=== PATIENT | female | born 1960 | race Caucasian/White ===

== ENCOUNTER 2021-06-26 13:08 | Outpatient (CLI) | payer OTHER, SELFPAY ==
--- NOTE | 2021-06-26 13:14 | XR_ITS ---
WS: [email or web address] KUB, AP view, 06/26/2021 Clinical Data: kidney stone Comparison: None. Findings: No abnormal intraabdominal masses or calcifications are seen. There is no dilatated small bowel or ev idence of obstruction. There is a large amount of fecal material throughout the colon. The fecal material in colon gas obscu re detail over both kidneys. XR/XR KUB [id number] Impression: Large amount of fecal material in the colon.
== END 2021-06-26 13:09 | disposition home or self-care (01) ==
LOC: RAD 13:14
PROVIDERS: PCP Urology; Visit Provider Urology
DX: N20.0 Calculus of kidney (principal)
CPT/HCPCS: 74018; 81003

== ENCOUNTER 2021-07-08 13:01 | Outpatient (CLI) | payer OTHER, SELFPAY ==
--- NOTE | 2021-07-08 13:28 | XR_ITS ---
WS: [email or web address] XR KUB [id number] REASON FOR EXAM: UROLITHIASIS FINDINGS: CT scan 06/06/2021 demonstrated multiple intrarenal calculi bilaterally with a proximal right ureteral calculus. Multiple intrarenal calculi bilaterally. Calculus adjacent to the right transverse process of L3. Thi s is essentially the same location of the right ureteral calculus demonstrated on the previous CT sca n. In retrospect this calculus can be seen on the KUB of 06/26/2021 in the same location. No other urinary tract calculi are identified. XR/XR KUB [id number] IMPRESSION: Right ureteral calculus which is not changed position since 06/06/2021.
== END 2021-07-08 13:02 | disposition home or self-care (01) ==
PROVIDERS: PCP Urology; Visit Provider Urology
DX: N20.9 Urinary calculus, unspecified (principal); N20.1 Calculus of ureter
CPT/HCPCS: 74018; 81003; 87635

== ENCOUNTER 2021-07-15 07:32 | Day surgery (SDC) | payer OTHER, SELFPAY ==
[2021-07-12 13:21] VITALS: BMI 25.0
[2021-07-15] VITALS (7 sets, daily range): BP systolic 118–139; BP diastolic 72–86; PULSE 84–100; RESP 16–18; TEMP 36.1–36.3; O2SAT 93–99
--- NOTE | 2021-07-15 06:01 | P.HPUD_ITS ---
Surgery/Procedure H&P Update DATE OF PROCEDURE: July 15, 2021 DATE H&P PERFORMED: 07/08/21 H&P UPDATE INFORMATION: I have reviewed H&P completed within last 30 days, I have examined patient prior to procedure, No changes to prior documentation and H&P is in [facility] on date indicated PRIMARY INDICATION FOR PROCEDURE: Refractory RIGHT PROXIMAL ureteral 6mm stone first diagnosed 06/06/[address] scan. No progression of stone on serial KUBs in clinic. Persistent symptoms. Plan stent and ESWL KUB today showed no change in the position of the stone in the right proximal ureter. PLANNED PROCEDURE: Operation Date: 07/15/21 09:10 Proposed Procedures p ESWL [id number]/71972/n20.9/n20.1(Right) - Leo Mercado MD s Cystoscopy(Not Applicable) - Leo Mercado MD s Ureteral Stent Placement(Right) - Leo Mercado MD
--- NOTE | 2021-07-15 07:41 | XR_ITS ---
WS: [email or web address] ABDOMEN KUB CLINICAL INFORMATION: Renal/ureteral calculi. COMPARISON: July 08, 2021 FINDINGS: Stable RIGHT middle 1/3rd ureteral calculus at the L3 level projected over the transverse process. No other significant changes compared to previous. Additional tiny renal parenchymal calculi. XR/XR KUB [id number] Impression: Stable RIGHT middle 3rd ureteral calculus at the L3 level
[2021-07-15] MEDS: sodium chloride 0.9% 1,000 ML 30 ML IV (08:46)
--- NOTE | 2021-07-15 08:51 | ANES.PREANE2 ---
Pre-Anesthetic Assessment Height/Weight: Height 1.68 m Weight 70.307 kg Temp Pulse Resp BP Pulse Ox 97.3 F L 84 18 137/85 99 07/15/21 08:06 07/15/21 08:06 07/15/21 08:06 07/15/21 08:06 07/15/21 08:06 Preop Diagnosis: Refractory right ureteral calculus Operation Date: 07/15/21 09:10 Proposed Procedures p ESWL [id number]/n20.9/n20.1(Right) - Leo Mercado MD s Cystoscopy(Not Applicable) - Leo Mercado MD s Ureteral Stent Placement(Right) - Leo Mercado MD Was Beta Marcela taken within 24 hours: N/A Was Clonidine taken within 24 hours: N/A Social No alcohol and No tobacco Exam alert, oriented x 3, clear to auscultation bilaterally and regular rate & rhythm Airway Submandibular: within normal limits Cervical ROM: within normal limits Mallampati: Class II Dentition: full History/ROS No significant history except as noted Pulmonary None reported CV/HEM None reported METS = 4 Nephrolithiasis Hepatic None reported GI None reported Metabolic None reported Musc/skel None reported Neuropsych None reported Anesthetic Plan ASA status: 2 Anesthesia: Anesthesia Evaluation and General Other: We discussed risk and benefits of general anesthesia including PONV, sore throat (sometimes severe), corneal abrasion, positioning and peripheral nerve injuries, life threatening allergic reaction, post operative ICU admission requiring prolonged intubation, stroke, heart attack, , and rare incidences of recall. Patient consents to proceed with general anesthesia. Risk of > 500 ml blood loss (7ml/kg in children): No Medications/Allergies Home Medications Medication Instructions Recorded Confirmed Last Taken Type L.acidoph, paracasei,B. lactis 10 cell PO 06/26/21 07/08/21 07/14/21 History billion cell capsule (Digestive Advantage Advanced Probiotic) atorvastatin 20 mg tablet 20 mg PO DAILY 06/26/21 07/15/21 07/14/21 History cinnamon PO 06/26/21 07/08/21 Unknown History cinnamon bark 500 mg capsule 1,000 mg PO DAILY cap 06/26/21 07/12/21 Unknown History (Cinnamon) docusate sodium 100 mg capsule 100 mg PO BID 06/26/21 07/15/21 07/14/21 History (Stool Softener) mecobalamin (vitamin B12) 1,000 1,000 mcg SUBLINGUAL DAILY 06/26/21 07/15/21 07/14/21 History mcg disintegrating tablet,sublingual omeprazole 20 mg capsule,delayed 20 mg PO DAILY 06/26/21 07/15/21 07/14/21 History release tamsulosin 0.4 mg capsule 0.4 mg PO DAILY #30 cap 06/26/21 07/15/21 07/14/21 Rx Allergies Allergy/AdvReac Type Severity Reaction Status Date / Time sulfamethoxazole Allergy Mild STOMACH Verified 07/08/21 14:26 [From Bactrim] ACHE trimethoprim [From Bactrim] Allergy Mild STOMACH Verified 07/08/21 14:26 ACHE venlafaxine AdvReac sweating, Verified 06/26/21 13:58 elevated BP Current Medications Generic Name Dose Route Start Last Admin Trade Name Freq PRN Reason Stop Dose Admin Sodium Chloride 1,000 mls @ 30 mls/hr 07/15/21 07:45 07/15/21 08:46 Sodium Chloride 0.9% IV 07/16/21 07:44 30 mls/hr .Q24H JEN Administration PFSH Anesthesia Medical History Urolithiasis Surgical History History of bladder surgery History of cholecystectomy History of hysterectomy Family History Father Dementia Cancer SQUAMOUS CELL CARCINOMA Mother Dementia Social History Smoking and tobacco status: never smoked Alcohol intake: never Marital status: Current occupational status: retired History of recent travel: No Data Anesthesia Cardiac Studies: No Data to Display
[2021-07-15] MEDS: levofloxacin-dextrose 5 % 500 MG/100 ML PREMIX 100 MG IV (09:36)
--- NOTE | 2021-07-15 10:49 | PM.OP ---
Operative Report Date of procedure: July 15, 2021 Pre-op diagnosis: Preop Diagnosis Refractory right ureteral calculus Post-op diagnosis: Refractory right ureteral calculus Procedure done: 1. Extracorporeal shockwave lithotripsy right proximal ureteral stone 2. Cystoscopy with right ureteral stent placement (6 Polish by 28 cm double-pigtail without string Specimens removed/disposition: None Pathology: None Surgeon: Jess [employer] Sales Representative: Janet, lithotripsy certified technician specialist Anesthesia: General Estimated blood loss: None Urine output: Not measured Complications: None Findings: Stone easily with fluoroscopy. 2500 shocks administered to the stone with apparent good change. Stent left indwelling postop (6 Polish by 28 cm double-pigtail without string Brief History: Gill is a very pleasant 61-year-old white female who presented with renal colic on the right side in early June had a CT scan that demonstrated an obstructing right proximal ureteral stone. Since that time she has been imaged serially with no progressive movement of the stone. She still was symptomatic on follow-up clinic visit last week and elected to proceed with ESWL plus stent Procedure: After routine preoperative evaluation examination and obtaining of informed consent she was taken to the operating suite on 07/15/2021 where general anesthesia was administered without difficulty after appropriate timeout was performed, SCDs confirmed to be functioning, preoperative antibiotics administered, beta-gideon protocol confirmed. Position on the Dornier unit such that the stone was located the focal point utilizing biplanar fluoroscopy with a shock and positioned anteriorly. The stone was easily identified and focused upon. A total of 2500 shocks were administered to the stone with good change. Position adjustments based on real-time fluoroscopic monitoring. Shockwave was initiated intensity of 1 advanced an intensity of 4. Rate was 70 throughout. Based on the duration of which the stone had been present in the same place it was decided to leave a stent in to account for ureteral edema. She was then repositioned in dorsolithotomy position paying careful attention to avoiding pressure points. 21 Polish cystoscope with 30 degree lens was introduced into the urethra meatus and advanced into the bladder under videoscopy. The bladder was systematically examined and found to be within normal limits. There appear to be some very small sediment likely stone particles. A flexible tip guidewire was then advanced up the right ureter easily bypassing the area of the stone curling in the upper pole calyx and a 6 Polish by 28 cm double-pigtail stent was advanced over the guidewire through the cystoscope into appropriate position as confirmed via fluoroscopy and cystoscopy. Stent was confirmed to be functioning. She tolerated procedure well without complications and was awakened in the operating room and returned to the recovery room in stable condition. PLANS: 1. Anticipate discharge from outpatient surgery 2. Follow-up in roughly 1 week with KUB and likely cystoscopy stent removal.
[2021-07-15] MEDS: ondansetron 2 mg/ML SDV 2 mL 4 MG IVP ×2 (11:23→11:53)
[2021-07-15] MEDS: scopolamine 1.5 Patch 1 PATCH TRANSDERMA (12:13)
[2021-07-15] MEDS: diphenhydrAMINE 50 mg/mL SDV 1mL 25 MG IVP (12:13)
[2021-07-15] MEDS: ketorolac 30 mg/mL INJ IVP (12:28)
--- NOTE | 2021-07-15 15:54 | ANE.PACU2 ---
Inpatient post-anesthesia follow up: Airway intact: Yes Vital signs: Temperature 97.2 F Pulse Rate 87 Respiratory Rate 16 Blood Pressure 124/72 Pulse Oximetry 97 Oxygen Delivery Me thod Room Air Oxygen Flow Rate 6 Fraction of Inspir ed Oxygen Hydration adequate: Yes Nausea and vomiting: Yes (Nausea improved with diphenhydramine and scopalamine patch) Pain level: 4 Mental status: Baseline
== END 2021-07-15 13:35 | disposition home or self-care (01) ==
PROVIDERS: PCP Urology; Visit Provider Urology
PROC: (CPT 50590; principal; 2021-07-15 09:00)
PROC: 0TJB8ZZ Inspection of Bladder, Via Natural or Artificial Opening Endoscopic (ICD-10-PCS; CPT 52000; 2021-07-15 09:00)
PROC: (CPT 50605; 2021-07-15 09:00)
DX: N20.1 Calculus of ureter (principal)
CPT/HCPCS: 50590; 52332; 74018; C2625; J1100; J1200; J1885; J1956; J2250; J2405; J2704; J3010; J7030

== ENCOUNTER 2021-07-23 14:02 | Outpatient (CLI) | payer OTHER, SELFPAY ==
--- NOTE | 2021-07-23 14:00 | XR_ITS ---
WS: [email or web address] Exam: XR KUB [id number] Date/Time of Exam: 07/23/2021 2:16 PM Reason For Exam: UROLITHIASIS Comparison 07/15/2021. A right-sided ureteral catheter has been placed and appears to be in satisfactory position. There are calcifications superimposing both kidneys apparently representing known renal stones. There is also a calcification seen along the proximal aspect of the right ureteral catheter that may represent a ur eteral stone. No bowel obstruction or free air. No sign of organ enlargement. XR/XR KUB [id number] IMPRESSION: 1. Right ureteral pigtail catheter appearing to be in satisfactory location. A 3 mm calcification is seen along the proximal aspect of the catheter and may re present a ureteral stone. There are also small calcified stones visualized in b oth kidneys. 2. No acute abdominal process.
== END 2021-07-23 14:03 | disposition home or self-care (01) ==
LOC: RAD 14:05
PROVIDERS: PCP Urology; Visit Provider Urology
DX: N20.9 Urinary calculus, unspecified (principal); Z96.0 Presence of urogenital implants
CPT/HCPCS: 74018

== ENCOUNTER 2021-08-19 14:14 | Outpatient (CLI) | payer OTHER, SELFPAY ==
--- NOTE | 2021-08-19 13:45 | XR_ITS ---
WS: [email or web address] KUB, AP view, 08/19/2021. Clinical Data: UROLITHIASIS Comparison: KUB, 07/23/2021 Findings: No abnormal intraabdominal masses are seen. There is no dilatated small bowel or evidence of obstruct ion. There may be calcifications overlying both kidneys but fecal material and bowel gas obscure detail. XR/XR KUB [id number] Impression: Possible bilateral renal calculi.
== END 2021-08-19 14:15 | disposition home or self-care (01) ==
PROVIDERS: PCP Family Medicine; Visit Provider Urology
DX: N20.9 Urinary calculus, unspecified (principal)
CPT/HCPCS: 74018; 81003

== ENCOUNTER → 2021-09-23 15:00 | Outpatient (BNVA) | payer OTHER, SELFPAY | PROVIDERS: PCP Family Medicine; Referring Provider Family Medicine; Visit Provider Podiatrist Foot & Ankle Surgery | DX: M79.671 Pain in right foot (principal); M79.672 Pain in left foot | CPT/HCPCS: 73630 ==

== ENCOUNTER → 2021-09-24 09:33 | Outpatient (BNVA) | payer OTHER, SELFPAY | PROVIDERS: PCP Family Medicine; Visit Provider Family Medicine | DX: E78.5 Hyperlipidemia, unspecified (principal); N95.1 Menopausal and female climacteric states; B35.4 Tinea corporis; Z12.11 Encounter for screening for malignant neoplasm of colon | CPT/HCPCS: 80053; 80061; 84443; 85025 ==

== ENCOUNTER 2022-02-19 06:57 | Day surgery (SDC) | payer OTHER, SELFPAY ==
[2022-02-17 14:27] VITALS: BMI 24.7
[2022-02-19 07:26] VITALS: BP 145/85; PULSE 61; RESP 18; TEMP 36.1; O2SAT 98
[2022-02-19] MEDS: sodium chloride 0.9% 1,000 ML 30 ML IV (07:35)
--- NOTE | 2022-02-19 07:49 | ANES.PREANE2 ---
Pre-Anesthetic Assessment Height/Weight: Height 1.68 m Weight 69.4 kg Temp Pulse Resp BP Pulse Ox O2 Del Method 97.0 F L 61 18 145/85 98 02/19/22 07:02/19/22 07:02/19/22 07:02/19/22 07:02/19/22 07:02/19/22 07:26 Preop Diagnosis: Refractory right ureteral calculus Operation Date: 02/19/22 08:15 Proposed Procedures p Colonoscopy [id number],Z12.11(Not Applicable) - Maverick Reyes DO Familial anesthetic complications: PONV Was Beta Marcela taken within 24 hours: N/A Was Clonidine taken within 24 hours: Yes Last intake: Intake Last Liquid Date 02/18/22 Last Liquid Time 22:00 Last Solid Date 02/17/22 Last Solid Time 21:00 Social No alcohol and No tobacco Exam alert, oriented x 3, clear to auscultation bilaterally and regular rate & rhythm Airway Mallampati: Class II Dentition: full Pulmonary None reported CV/HEM Hypertension None reported Hepatic None reported GI Gastroesophageal Reflux Disease Metabolic Hyperlipidemia Neuropsych Neuropathy Anesthetic Plan ASA status: 2 Anesthesia: MAC Risk of > 500 ml blood loss (7ml/kg in children): No Medications/Allergies Home Medications Medication Instructions Recorded Confirmed Last Taken Type L.acidoph, paracasei,B. lactis 10 100 cell PO 1XD 06/26/21 02/19/22 02/17/22 History billion cell capsule (Digestive Advantage Advanced Probiotic) docusate sodium 100 mg capsule 100 mg PO BID 06/26/21 02/19/22 02/17/22 History (Stool Softener) mecobalamin (vitamin B12) 1,000 1,000 mcg sublingual DAILY 06/26/21 02/19/22 02/17/22 History mcg disintegrating tablet,sublingual omeprazole 20 mg capsule,delayed 20 mg PO DAILY 06/26/21 02/19/22 02/17/22 History release atorvastatin 20 mg tablet 20 mg PO DAILY #90 tabs 09/25/21 02/19/22 02/18/22 Rx acetaminophen 500 mg tablet 500 mg PO ONCE PRN Pain, Moderate 10/31/21 02/19/22 Unknown History (Tylenol Extra Strength) clonidine HCl 0.1 mg tablet 0.1 mg PO DAILY PRN hot flashes 12/24/21 02/19/22 02/18/22 Rx #90 tabs estradiol 1 mg tablet 1 mg PO DAILY #90 tabs 12/24/21 02/19/22 02/17/22 Rx meloxicam 15 mg tablet 15 mg PO DAILY 1 month #90 tabs 12/24/21 02/19/22 02/17/22 Rx Allergies Allergy/AdvReac Type Severity Reaction Status Date / Time sulfamethoxazole Allergy Mild STOMACH Verified 02/19/22 07:24 [From Bactrim] ACHE trimethoprim [From Bactrim] Allergy Mild STOMACH Verified 02/19/22 07:24 ACHE venlafaxine AdvReac sweating, Verified 02/19/22 07:24 elevated BP Current Medications Generic Name Dose Route Start Last Admin Trade Name Josefq PRN Reason Stop Dose Admin Sodium Chloride 1,000 mls @ 30 mls/hr 02/19/22 07:15 02/19/22 07:35 Sodium Chloride 0.9% IV 02/20/22 07:14 30 mls/hr .Q24H JEN Administration PFSH Anesthesia Medical History Chronic low back pain History of cervical fracture History of fracture of right ankle Rectal prolapse surgery 2019 Urolithiasis Surgical History History of bladder surgery Lifted History of cholecystectomy 2001 History of hysterectomy GALO. 2018 Family History Father Dementia Cancer SQUAMOUS CELL CARCINOMA Mother Dementia Social History Smoking and tobacco status: never smoked Alcohol intake: never Marital status: Current occupational status: retired History of recent travel: No Data Anesthesia Cardiac Studies: No Data to Display
--- NOTE | 2022-02-19 07:50 | W.PM.OPSUD ---
Surgery/Procedure H&P Update DATE OF PROCEDURE: February 19, 2022 DATE H&P PERFORMED: 02/05/22 PREOP DIAGNOSIS: Abdominal pain and need for colon cancer screening PLANNED PROCEDURE: Operation Date: 02/19/22 08:15 Proposed Procedures p Colonoscopy 56309,Z12.11(Not Applicable) - Maverick Reyes, DO and EGD
[2022-02-19 09:01] VITALS: BP 116/66; PULSE 75; RESP 16; TEMP 36.7; O2SAT 99
--- NOTE | 2022-02-19 09:04 | ANE.PACU2 ---
Inpatient post-anesthesia follow up: Airway intact: Yes Vital signs: Temperature 97.0 F Pulse Rate 61 Respiratory Rate 18 Blood Pressure 145/85 Pulse Oximetry 98 Oxygen Delivery Me thod Room Air Oxygen Flow Rate Fraction of Inspir ed Oxygen Hydration adequate: Yes Nausea and vomiting: No Pain level: 1 Mental status: Baseline
[2022-02-19 09:13] VITALS: BP 132/70; PULSE 71; RESP 16; O2SAT 99
[2022-02-19 09:23] VITALS: BP 130/77; PULSE 68; RESP 16; O2SAT 100
--- NOTE | 2022-02-19 15:05 | ANE.PACU2 ---
Inpatient post-anesthesia follow up: Airway intact: Yes Vital signs: Temperature 98.1 F Pulse Rate 68 Respiratory Rate 16 Blood Pressure 130/77 Pulse Oximetry 100 Oxygen Delivery Me thod Room Air Oxygen Flow Rate Fraction of Inspir ed Oxygen Hydration adequate: Yes Nausea and vomiting: No Pain level: 1 Mental status: Baseline
== END 2022-02-19 08:30 | disposition home or self-care (01) ==
PROVIDERS: PCP Family Medicine; Visit Provider Surgery
PROC: 0DJD8ZZ Inspection of Lower Intestinal Tract, Via Natural or Artificial Opening Endoscopic (ICD-10-PCS; CPT 45378; principal; 2022-02-19 08:15)
PROC: 0DJ08ZZ Inspection of Upper Intestinal Tract, Via Natural or Artificial Opening Endoscopic (ICD-10-PCS; CPT 43235; 2022-02-19 08:15)
DX: Z12.11 Encounter for screening for malignant neoplasm of colon (principal); K21.9 Gastro-esophageal reflux disease without esophagitis; I10 Essential (primary) hypertension; E78.5 Hyperlipidemia, unspecified
CPT/HCPCS: 43235; 45378; J2704; J7030

== ENCOUNTER → 2022-04-14 10:07 | Outpatient (BNVA) | payer OTHER, SELFPAY | PROVIDERS: PCP Family Medicine; Visit Provider Student in an Organized Health Care Education/Training Program | DX: F41.1 Generalized anxiety disorder (principal); M17.11 Unilateral primary osteoarthritis, right knee; N95.1 Menopausal and female climacteric states; E78.5 Hyperlipidemia, unspecified | CPT/HCPCS: 73560; 73565; 80053 ==

== ENCOUNTER 2022-05-28 15:37 | Outpatient (CLI) | payer OTHER, SELFPAY | END 2022-05-28 15:38 | disposition home or self-care (01) | LOC: SPT 15:37 | PROVIDERS: PCP Family Medicine; Visit Provider Podiatrist Foot & Ankle Surgery | DX: Z46.89 Encounter for fitting and adjustment of other specified devices (principal); M20.41 Other hammer toe(s) (acquired), right foot; M20.42 Other hammer toe(s) (acquired), left foot; M21.621 Bunionette of right foot; M21.622 Bunionette of left foot | CPT/HCPCS: 97760; L3030 ==

== ENCOUNTER 2022-08-19 09:11 | Outpatient (CLI) | payer OTHER, SELFPAY ==
--- NOTE | 2022-08-19 09:18 | MM_ITS ---
WS: [email or web address] BILATERAL SCREENING DIGITAL TOMOSYNTHESIS MAMMOGRAM WITH CAD HISTORY: screening mammogram COMPARISON: None available. Bilateral CC and MLO views with tomosynthesis and synthetic mammography submitted. Computer aided det ection analyzed. Breast composition: The breasts are heterogeneously dense, which may obscure small masses. No suspici ous masses, microcalcifications or architectural distortion. Benign calcifications. MM/[place] [id number] IMPRESSION: BI-RADS: 2-Benign FOLLOW UP: 1 Year Follow-up
== END 2022-08-19 09:12 | disposition home or self-care (01) ==
LOC: RAD 09:14
PROVIDERS: PCP Family Medicine; Visit Provider Family Medicine
DX: Z12.31 Encounter for screening mammogram for malignant neoplasm of breast (principal)
CPT/HCPCS: 77063; 77067

== ENCOUNTER → 2023-01-23 09:10 | Outpatient (BNVA) | payer OTHER, SELFPAY | PROVIDERS: PCP Family Medicine; Visit Provider Family Medicine | DX: E78.5 Hyperlipidemia, unspecified (principal) | CPT/HCPCS: 80053; 80061; 85025 ==

== ENCOUNTER → 2023-03-31 08:50 | Outpatient (BNVA) | payer OTHER, SELFPAY | PROVIDERS: PCP Family Medicine; Visit Provider Student in an Organized Health Care Education/Training Program | DX: M17.12 Unilateral primary osteoarthritis, left knee | CPT/HCPCS: 73560; 73565 ==

== ENCOUNTER → 2023-06-04 10:21 | Outpatient (BNVA) | payer OTHER, SELFPAY | PROVIDERS: PCP Family Medicine; Visit Provider Physician Assistant | DX: M17.12 Unilateral primary osteoarthritis, left knee | CPT/HCPCS: 99214 ==

== ENCOUNTER 2023-06-18 09:29 | Outpatient (CLI) | payer OTHER, SELFPAY ==
--- NOTE | 2023-06-18 09:30 | CT_ITS ---
WS: [email or web address] CT LEFT knee, noncontrast HISTORY: LEFT TOTAL KNEE ARTHROPLASTY TECHNIQUE: Protocol for [facility] total knee replacement has been obtained. This includes axial imaging th rough the LEFT hip, LEFT knee and LEFT ankle. DLP: 972.05 mGy COMPARISON: None available. Pelvis: Symmetric appearance of the pelvis. No bone destruction. LEFT knee: Moderate tricompartment joint space narrowing with marginal osteophytes. No fractures. Sma ll joint effusion and small Knapp's cyst. LEFT ankle: Normal. IMPRESSION: CT imaging provided for [facility] robotic total knee replacement.
== END 2023-06-18 09:30 | disposition home or self-care (01) ==
LOC: RAD 09:29
PROVIDERS: PCP Family Medicine; Visit Provider Physician Assistant
DX: Z01.818 Encounter for other preprocedural examination (principal); M17.12 Unilateral primary osteoarthritis, left knee
CPT/HCPCS: 73700

== ENCOUNTER → 2023-06-25 09:51 | Outpatient (BNVA) | payer OTHER, SELFPAY | PROVIDERS: PCP Family Medicine; Visit Provider Family Medicine | DX: Z01.818 Encounter for other preprocedural examination (principal) | CPT/HCPCS: 80053; 81003; 85025; 87086 ==

== ENCOUNTER 2023-07-21 03:17 | Emergency (ER) | payer OTHER, SELFPAY ==
[2023-07-21 03:23] VITALS: BP 154/103; PULSE 84; RESP 18; TEMP 36.5; O2SAT 96; BMI 26.6
--- NOTE | 2023-07-21 03:31 | CTR_ITS ---
PROCEDURE INFORMATION: Exam: CT Abdomen And Pelvis Without Contrast Exam date and time: 07/21/2023 3:57 AM Age: 63 years old Clinical indication: Abdominal pain; Flank; Right; Prior surgery; Surgery date: 6+ months; Surgery type: Hyst, bladder lift x2; Additional info: Right flank pain TECHNIQUE: Imaging protocol: Computed tomography of the abdomen and pelvis without contrast. Radiation optimization: All CT scans at this facility use at least one of these dose optimization techniques: automated exposure control; mA and/or kV adjustment per patient size (includes targeted exams where dose is matched to clinical indication); or iterative reconstruction. COMPARISON: CT abdomen pelvis w con* [id number] 06/06/2021 3:14 PM RADIATION DOSE METRICS: Total DLP (mGy-cm): 599 FINDINGS: Lungs: The lung bases are clear. Diaphragm: 3.5 cm hiatal hernia, new since the prior exam. Liver: There are several small well-defined low attenuation areas in the liver, largest about 12 mm. No significant interval. These are nonspecific, but are statistically most likely small cysts or cavernous hemangiomas. Gallbladder and bile ducts: The gallbladder is not visualized, suspect that there has been prior cholecystectomy. Please correlate clinically. No significant biliary tree dilation. Pancreas: Unremarkable. Spleen: Unremarkable. Adrenal glands: Unremarkable. Kidneys and ureters: Several small right intrarenal calculi. Mild to moderate right hydronephrosis and hydroureter. There is a 3 mm proximal right ureteral calculus, about 5 cm inferior to the UPJ. The calculus lies at the level of the L4-L5 disc space. Suspect an 11 mm simple appearing cyst in the lower lateral right kidney. Several small left intrarenal calculi. No left hydronephrosis or visible left ureteral calculus. Stomach and bowel: No significant bowel distention. There are no CT findings to strongly suggest diverticulitis. Appendix: The appendix is visualized and appears normal. Intraperitoneal space: No free intraperitoneal air, or ascites. Vasculature: No evidence for abdominal aortic aneurysm. Lymph nodes: No retroperitoneal adenopathy. Urinary bladder: No visible calculus in the urinary bladder. Reproductive: Apparent prior hysterectomy. No definite ovarian/adnexal cyst or mass by CT. Bones/joints: Moderate to severe degenerative disc changes in the lumbar spine, similar to the prior exam. Soft tissues: No significant acute finding. CT/CT kidney stone [id number] IMPRESSION: 1. 3 mm proximal right ureteral calculus, see additional details above. 2. Mild to moderate right hydronephrosis and hydroureter. 3. Bilateral intrarenal calculi. 4. Normal appendix. 5. Hiatal hernia. 6. Other findings discussed above. COMMENTS: Consistent with the [employer]'s Incidental Findings Committee white paper (J Am Paola Radiol 2018): Any incidental renal lesion less than 1 cm or classified as too small to characterize, or any incidental cystic renal lesion characterized as simple-appearing, is likely benign. No follow-up imaging is recommended for these lesions per consensus recommendations based on imaging criteria.
--- NOTE | 2023-07-21 03:31 | ED_ITS ---
HPI - Female Genitourinary 2 General: Chief complaint: Urogenital-Female Stated complaint: Abd pain Time Seen by Provider: 07/21/23 03:19 Source: patient Mode of arrival: ambulatory Limitations: no limitations History of Present Illness: 63-year-old female states she started mary ving severe right-sided flank pain that radiates to her groin 2 hours ago. States pain sharp in nature causing her nausea as well she had no vomiting she states the pain is currently an 8 out of 10. She denies any dysuria she had a history of kidney stones and this feels similar. Denies any worsening improving factors Associated symptoms: Reports nausea; Deny headache(s) Review of Systems 2 Const: Denies: fever(s) or chills ENMT: Denies: throat pain or dental pain Card: Denies: chest pain Resp: Denies: dyspnea GI: Reports: nausea; Denies: vomiting or diarrhea : Reports: flank pain; Denies: dysuria Musc: Denies: neck pain or back pain Skin/Breast: Denies: rash Neuro: Denies: headache(s) PFSH ED 2 PFSH: Medical History Right knee DJD Rectal prolapse surgery 2019 Chronic low back pain History of cervical fracture History of fracture of right ankle Urolithiasis Surgical History History of bladder surgery Lifted History of hysterectomy GALO. 2018 History of cholecystectomy 2001 Family History Father Dementia Cancer SQUAMOUS CELL CARCINOMA Mother Dementia Social History Smoking and tobacco/nicotine status: never used tobacco/nicotine Alcohol intake: never Substance/Drug Use: never Marital status: Current occupational status: retired Physical Exam 2 Const: COMMON NORMALS: no acute distress, patient oriented x3 and healthy appearing HENMT: COMMON NORMALS: normocephalic and atraumatic HEAD & SCALP: n ormocephalic and atraumatic Neck/C-Spine: COMMON NORMALS: full ROM and supple Chest: COMMONS NORMALS: normal inspection of the chest Resp: COMMON NORMALS: normal respiratory effort Cardio: COMMON NORMALS: regular rate RATE: regular rate GI: COMMON NORMALS: Normal to inspection, nondistended, normoactive bowel sounds present, Soft to palpation, non-tender and no masses PALPATION: Yes Soft to palpation Extremity: COMMON NORMALS: normal to inspection and full ROM Neuro: COMMON NORMALS: patient oriented x3, moves all extremities and no focal motor deficits Psych: COMMON NORMALS: mental status grossly normal, Normal thought process present and cooperative THOUGHT PROCESS: Normal thought process present Skin: COMMON NORMALS: no rashes or lesions noted and no wounds GENERAL SKIN EXAM: no rashes or lesions noted Course 2 Vital Signs: Vital signs: Vital Signs Temperature 97.7 F 07/21/23 03:23 Pulse Rate 67 07/21/23 04:38 Respiratory Rate 18 07/21/23 04:38 Blood Pressure 125/75 07/21/23 04:38 Pulse Oximetry 97 07/21/23 04:38 Oxygen Delivery Me thod Room Air 07/21/23 03:23 MDM - Female Medical Decision Making Patient presents here with flank pain CT shown with kidney stone is likely causing her pain is 3 mm should pass on its own will DC with a strainer she is follow-up with urology will prescribe her pain meds and nausea medicine her pain is much improved here. Medical Records I reviewed the patient's medical records. Lab Data I reviewed the patient's lab results. 07/21/23 03:33 07/21/23 03:33 Radiology Impressions Abdomen/Pelvis CT 07/21/23 03:31 IMPRESSION: 1. 3 mm proximal right ureteral calculus, see additional details above. 2. Mild to moderate right hydronephrosis and hydroureter. 3. Bilateral intrarenal calculi. 4. Normal appendix. 5. Hiatal hernia. 6. Other findings discussed above. COMMENTS: Consistent with the [employer]'s Incidental Findings Committee white paper (J Am Paola Radiol 2018): Any incidental renal lesion less than 1 cm or classified as too small to characterize, or any incidental cystic renal lesion characterized as simple-appearing, is likely benign. No follow-up imaging is recommended for these lesions per consensus recommendations based on imaging criteria. Laboratory Results WBC 9.74 10^3/uL (3.29-11.43) 07/21/23 03:33 RBC 4.52 10^6/uL (3.85-5.65) 07/21/23 03:33 Hgb 13.40 g/dL (11.27-16.99) 07/21/23 03:33 Hct 41.3 % (36-47) 07/21/23 03:33 MCV 91.4 fl (85-98) 07/21/23 03:33 MCH 29.6 pg (27-33) 07/21/23 03:33 MCHC 32.4 g/dL (30-55) 07/21/23 03:33 RDW 12.2 % (12.1-15.1) 07/21/23 03:33 Plt Count 261 10^3/cmm (157-399) 07/21/23 03:33 MPV 9.4 fL (7.4-10.4) 07/21/23 03:33 Neut % (Auto) 72.9 % 07/21/23 03:33 Lymph % (Auto) 19.6 % 07/21/23 03:33 [place] % (Auto) 5.4 % 07/21/23 03:33 Eos % (Auto) 1.2 % 07/21/23 03:33 Baso % (Auto) 0.5 % 07/21/23 03:33 Neut # (Auto) 7.09 10^3/uL (1.8-7.7) 07/21/23 03:33 Lymph # (Auto) 1.9 10^3/uL (0.8-4.8) 07/21/23 03:33 [place] # (Auto) 0.5 10^3/uL (0.2-0.9) 07/21/23 03:33 Eos # (Auto) 0.1 10^3/uL (0.0-0.8) 07/21/23 03:33 Baso # (Auto) 0.1 10^3/uL (0.0-0.1) 07/21/23 03:33 Nucleated RBC % (auto) 0 % 07/21/23 03:33 Nucleated RBCs # 0.0 /100WBC 07/21/23 03:33 Sodium 137 mmol/L (136-145) 07/21/23 03:33 Potassium 3.5 mmol/L (3.5-5.1) 07/21/23 03:33 Chloride 103 mmol/L (98-107) 07/21/23 03:33 Carbon Dioxide 26 mmol/L (22-29) 07/21/23 03:33 Anion Gap 11.5 (5-19) 07/21/23 03:33 BUN 17 mg/dL (8-23) 07/21/23 03:33 Creatinine 0.5 mg/dL (0.5-0.9) 07/21/23 03:33 GFR Calculation 123.8 mL/min (90-130) 07/21/23 03:33 Glucose 103 mg/dL (65-115) 07/21/23 03:33 Calculated Osmolality 286 mOsm/kg (285-295) 07/21/23 03:33 Calcium 9.9 mg/dL (8.5-10.5) 07/21/23 03:33 Total Bilirubin 0.2 mg/dL (0.15-1.2) 07/21/23 03:33 AST 19 U/L (0-32) 07/21/23 03:33 ALT 17 U/L (0-33) 07/21/23 03:33 Alkaline Phosphatase 77 U/L (35-105) 07/21/23 03:33 Total Protein 6.6 g/dL (6.6-8.7) 07/21/23 03:33 Albumin 4.2 g/dL (3.5-5.2) 07/21/23 03:33 Globulin 2.4 g/dL (1.3-4.6) 07/21/23 03:33 Lipase 40 U/L (13-60) 07/21/23 03:33 Urine Color Yellow (Yellow) 07/21/23 03:33 Urine Appearance Hazy (CLEAR) A 07/21/23 03:33 Urine pH 6 (5-7) 07/21/23 03:33 Ur Specific Hunters 1.020 (1.005-1.030) 07/21/23 03:33 Urine Protein Neg (Negative) 07/21/23 03:33 Urine Glucose (UA) Norm (Normal) 07/21/23 03:33 Urine Ketones Negative (Negative) 07/21/23 03:33 Urine Blood 3+ (Negative) H 07/21/23 03:33 Urine Nitrate Negative (Negative) 07/21/23 03:33 Urine Bilirubin Neg (Negative) 07/21/23 03:33 Urine Urobilinogen Neg mg/dL (Negative) 07/21/23 03:33 Ur Leukocyte Esterase Negative (Negative) 07/21/23 03:33 Urine RBC 40-50 /hpf (0-2) H 07/21/23 03:33 Urine WBC 0-4 /hpf (0-5) H 07/21/23 03:33 Ur Squamous Epith Cells 15-25 /hpf (0-5) H 07/21/23 03:33 Amorphous Sediment Not Reportable 07/21/23 03:33 Urine Bacteria 1+ /hpf (NONE) H 07/21/23 03:33 Urine Mucus 2+ /hpf 07/21/23 03:33 All radiology interpretation(s) finalized by discharge Discharge Plan Discharge Patient Disposition: Home Clinical Impression: Kidney stone Condition: Stable Prescriptions: New hydrocodone-acetaminophen 5-325 mg tablet 1 tab PO Q6H PRN (Reason: pain) Qty: 14 0RF ondansetron 4 mg tablet,disintegrating 4 mg PO Q6H PRN (Reason: nausea and vomiting) Qty: 14 0RF No Action docusate sodium [Stool Softener] 100 mg capsule 100 mg PO BID acetaminophen [Tylenol Extra Strength] 500 mg tablet 500 mg PO ONCE PRN (Reason: Pain, Moderate) meloxicam 15 mg tablet 15 mg PO DAILY 30 Days Qty: 90 1RF magnesium citrate 125 mg capsule 250 mg PO DAILY atorvastatin 20 mg tablet 20 mg PO DAILY Qty: 90 1RF (DME) Custom Sole Supports See Rx Instructions .Route .MEDSUPPLY Qty: 1 0RF Rx Instructions: directed by pantoprazole 40 mg tablet,delayed release (DR/EC) 40 mg PO QAM Qty: 90 1RF estradiol 1 mg tablet See Rx Instructions .ROUTE .COMPLEX Qty: 30 0RF Dose Instruction: Take 1 tablet by mouth once daily Rx Instructions: Take 1 tablet by mouth once daily Discharge Orders: Discharge ED (Routine); Ordered 07/21/23 Ordered By: Fransisco Costa Referrals: Lily Chua DO [Primary Care Provider] - Discharge Diet: Advance as tolerated Discharge Activity: Resume usual activity Patient Instructions: Kidney Stones (ED), Opioid Safety Coding Level of Care Code ED Floor Scraper for Chg Tolu
[2023-07-21] MEDS: HYDROmorphone 1 mg/mL INJ 1 mL IVP (03:40)
[2023-07-21] MEDS: ondansetron 2 mg/ML SDV 2 mL 4 MG IVP ×2 (03:40→04:33)
[2023-07-21] MEDS: sodium chloride 0.9% 1,000 ML 999 ML IV (03:41)
[2023-07-21 03:42] LABS: Basophils # 0.1 10^3/uL (0.0-0.1); Basophils % 0.5 %; Eosinophils # 0.1 10^3/uL (0.0-0.8); Eosinophils % 1.2 %; Hematocrit 41.3 % (36-47); Lymphocytes # 1.9 10^3/uL (0.8-4.8); Lymphocytes % 19.6 %; Mean Corpuscular HGB Conc 32.4 g/dL (30-55); Mean Corpuscular Hemoglobin 29.6 pg (27-33); Mean Corpuscular Volume 91.4 fl (85-98); Mean Platelet Volume 9.4 fL (7.4-10.4); Monocytes # 0.5 10^3/uL (0.2-0.9); Monocytes % 5.4 %; Neutrophils # 7.09 10^3/uL (1.8-7.7); Neutrophils % 72.9 %; Nucleated Red Blood Cells % 0 %; Platelet Count 261 10^3/cmm (157-399); Red Blood Count 4.52 10^6/uL (3.85-5.65); Red Cell Distribution Width 12.2 % (12.1-15.1); White Blood Count 9.74 10^3/uL (3.29-11.43)
[2023-07-21 03:44] VITALS: BP 134/83; PULSE 71; RESP 16; O2SAT 100
[2023-07-21 03:53] LABS: Add Urine Culture? No; Add Urine Microscopic? YES; Bacteria Urine 1+ /hpf; Bilirubin Urine Neg (Negative); Blood Urine 3+ (Negative); Glucose Urine UA Norm (Normal); Ketones Urine Negative (Negative); Leukocyte Esterase Urine Negative (Negative); Mucus Urine 2+ /hpf; Nitrate Urine Negative (Negative); Protein Urine Neg (Negative); RBC Urine 40-50 /hpf (0-2); Squamous Epithelial Cell Urine 15-25 /hpf (0-5); Urine Appearance Hazy (CLEAR); Urine Color Yellow (Yellow); Urobilinogen Urine Neg (Negative); WBC Urine 0-4 /hpf (0-5); pH Urine 6 (5-7)
[2023-07-21 04:00] LABS: Alanine Aminotransferase 17 U/L (0-33); Albumin Level 4.2 g/dL (3.5-5.2); Alkaline Phosphatase 77 U/L (35-105); Anion Gap 11.5 (5-19); Aspartate Amino Transferase 19 U/L (0-32); Blood Urea Nitrogen 17 mg/dL (8-23); Calcium 9.9 mg/dL (8.5-10.5); Carbon Dioxide 26 mmol/L (22-29); Chloride 103 mmol/L (98-107); Creatinine Clr Calc Pharmacy 72.5125; Globulin 2.4 g/dL (1.3-4.6); Glomerular Filtration Rate 123.8 mL/min (90-130); Glucose 103 mg/dL (65-115); Lipase 40 U/L (13-60); Osmolality Calculated 286 mOsm/kg (285-295); Potassium 3.5 mmol/L (3.5-5.1); Sodium 137 mmol/L (136-145); Total Bilirubin 0.2 mg/dL (0.15-1.2); Total Protein 6.6 g/dL (6.6-8.7)
[2023-07-21 04:38] VITALS: BP 125/75; PULSE 67; RESP 18; O2SAT 97
[2023-07-21] MEDS: ketorolac 30 mg/mL INJ 15 MG IVP (05:07)
--- NOTE | 2023-07-23 12:10 | DCPLANNER ---
I attempted to call patient at 1209 on 06/22 to see where patient would like urology referral sent to. Patient did not answer phone number [phone]
== END 2023-07-21 05:12 | disposition home or self-care (01) ==
PROVIDERS: Emergency Provider Emergency Medicine; PCP Family Medicine
DX: N13.2 Hydronephrosis with renal and ureteral calculous obstruction (principal); Z87.442 Personal history of urinary calculi
CPT/HCPCS: 74176; 80053; 81001; 83690; 85025; 96361; 96374; 96375; 96376; 99285; J1170; J1885; J2405; J7030

== ENCOUNTER 2023-07-27 15:05 | Observation (INO) | payer OTHER, SELFPAY ==
[2023-07-27] VITALS (14 sets, daily range): BP systolic 91–136; BP diastolic 52–82; PULSE 66–133; RESP 14–17; TEMP 36.2–37.1; O2SAT 97–100; BMI 26.6
[2023-07-27] MEDS: tranexamic acid 1,000 mg/10mL SDV 1000 MG IV (10:37)
[2023-07-27 11:38] LABS: Basophils % 0.6 %; Eosinophils # 0.1 10^3/uL (0.0-0.8); Eosinophils % 1.2 %; Hematocrit 43.1 % (36-47); Lymphocytes # 2.2 10^3/uL (0.8-4.8); Lymphocytes % 31.6 %; Mean Corpuscular HGB Conc 33.4 g/dL (30-55); Mean Corpuscular Hemoglobin 30.3 pg (27-33); Mean Corpuscular Volume 90.7 fl (85-98); Mean Platelet Volume 9.8 fL (7.4-10.4); Monocytes # 0.5 10^3/uL (0.2-0.9); Monocytes % 6.8 %; Neutrophils % 59.5 %; Nucleated Red Blood Cells % 0 %; Platelet Count 288 10^3/cmm (157-399); Red Blood Count 4.75 10^6/uL (3.85-5.65); Red Cell Distribution Width 12.3 % (12.1-15.1); White Blood Count 6.89 10^3/uL (3.29-11.43)
[2023-07-27] MEDS: lactated ringers 500 ML IV (11:39)
[2023-07-27] MEDS: acetaminophen 1,000 MG/100 ML PIGGYBACK 400 MG IV ×2 (11:40→18:22)
[2023-07-27] MEDS: scopolamine 1.5 Patch 1 PATCH TRANSDERMA (11:41)
--- NOTE | 2023-07-27 11:50 | P.ANESASSM_ITS ---
Pre-Anesthetic Assessment Height/Weight: Height 1.68 m Weight 75 kg Operation Date: 07/27/23 12:20 Proposed Procedures p Rex Robot Total Knee Arthroplasty(Left) - Anthony Orlando, Was Beta Marcela taken within 24 hours: N/A Was Clonidine taken within 24 hours: N/A Last intake: Intake Last Liquid Date 07/26/23 Last Liquid Time 22:00 Last Solid Date 07/26/23 Last Solid Time 20:00 Social No tobacco Exam alert and oriented x 3 Airway Submandibular: within normal limits Cervical ROM: within normal limits Mallampati: Class II History/ROS No significant history except as noted and No significant complaints Metabolic Hyperlipidemia Anesthetic Plan ASA status: 2 Anesthesia: Regional (specify below) Other: Spinal, adductor canal block Risk of > 500 ml blood loss (7ml/kg in children): No Medications/Allergies Home Medications Medication Instructions Recorded Confirmed Last Taken Type docusate sodium 100 mg capsule 100 mg PO BID 06/26/21 07/23/23 07/26/23 History (Stool Softener) Custom Sole Supports #1 ea 08/11/22 06/04/23 Unknown Rx meloxicam 15 mg tablet 15 mg PO DAILY 1 month #90 tabs 11/21/22 07/23/23 07/20/23 Rx atorvastatin 20 mg tablet 20 mg PO DAILY #90 tabs 01/23/23 07/23/23 07/23/23 Rx magnesium citrate 125 mg capsule 250 mg PO DAILY 01/23/23 07/23/23 07/16/23 History pantoprazole 40 mg tablet,delayed 40 mg PO QAM #90 tabs 05/04/23 07/23/23 07/27/23 Rx release estradiol 1 mg tablet See Rx Instructions .Route 06/30/23 07/23/23 07/23/23 Rx .COMPLEX #30 tabs hydrocodone 5 mg-acetaminophen 325 1 tab PO Q6H PRN pain #14 tabs 07/21/23 07/23/23 Unknown Rx mg tablet ondansetron 4 mg disintegrating 4 mg PO Q6H PRN nausea and 07/21/23 07/23/23 Unknown Rx tablet vomiting #14 tabs Allergies Allergy/AdvReac Type Severity Reaction Status Date / Time sulfamethoxazole Allergy Mild STOMACH Verified 06/25/23 10:00 [From Bactrim] ACHE trimethoprim [From Bactrim] Allergy Mild STOMACH Verified 06/25/23 10:00 ACHE gabapentin Allergy dizziness Verified 06/25/23 10:00 hydromorphone [From Dilaudid] Allergy ADR-Dizzine Verified 07/23/23 11:04 ss venlafaxine AdvReac sweating, Verified 06/25/23 10:00 elevated BP PFSH Anesthesia Medical History Right knee DJD Rectal prolapse surgery 2019 Chronic low back pain History of cervical fracture History of fracture of right ankle Urolithiasis Surgical History History of bladder surgery Lifted History of hysterectomy GALO. 2018 History of cholecystectomy 2001 Family History Father Dementia Cancer SQUAMOUS CELL CARCINOMA Mother Dementia Social History Smoking and tobacco/nicotine status: never used tobacco/nicotine Alcohol intake: never Substance/Drug Use: never Marital status: Current occupational status: retired Data Anesthesia 07/27/23 11:00 07/27/23 11:00 Short CBC 07/27/23 Range/Units 11:00 WBC 6.89 (3.29-11.43) 10^3/uL Hgb 14.40 (11.27-16.99) g/dL Hct 43.1 (36-47) % MCV 90.7 (85-98) fl Plt Count 288 (157-399) 10^3/cmm Neut % (Auto) 59.5 % Neut # (Auto) 4.10 (1.8-7.7) 10^3/uL BMP 07/27/23 11:00 Sodium Cancelled Potassium Cancelled Chloride Cancelled Carbon Dioxide Cancelled BUN Cancelled Creatinine Cancelled Glucose Cancelled Calcium Cancelled Cardiac Studies: 2 Cardiac Event Monitor 12/11/22
[2023-07-27] MEDS: ketorolac 30 mg/mL INJ IVP (12:01)
[2023-07-27 12:07] LABS: Add Urine Microscopic? NO; Charge for UA Resulting for Rev
--- NOTE | 2023-07-27 12:11 | W.PM.OPSFHP ---
Same Day Surgery H&P Indication for Procedure/HPI DATE OF PROCEDURE: July 27, 2023 CHIEF COMPLAINT/INDICATIONFOR SURGICAL PROCEDURE: Left knee degenerative joint disease PREOP DIAGNOSIS: Left knee degenerative joint disease PLANNED PROCEDURE: Operation Date: 07/27/23 12:20 Proposed Procedures p Rex Robot Total Knee Arthroplasty(Left) - Anthony Orlando DO Medications/Allergies* Home Medications Medication Instructions Recorded Confirmed Type docusate sodium 100 mg capsule 100 mg PO BID 06/26/21 07/23/23 History (Stool Softener) magnesium citrate 125 mg capsule 250 mg PO DAILY 01/23/23 07/23/23 History Allergies/Adverse Reactions Allergy/AdvReac Type Severity Reaction Status Date / Time sulfamethoxazole Allergy Mild STOMACH Verified 06/25/23 10:00 [From Bactrim] ACHE trimethoprim [From Bactrim] Allergy Mild STOMACH Verified 06/25/23 10:00 ACHE gabapentin Allergy dizziness Verified 06/25/23 10:00 hydromorphone [From Dilaudid] Allergy ADR-Dizzine Verified 07/23/23 11:04 ss venlafaxine AdvReac sweating, Verified 06/25/23 10:00 elevated BP Pertinent History/Comorbid Conditions* Medical History (Updated 07/21/23 @ 04:28 by Fransisco Costa MD) Right knee DJD Rectal prolapse surgery 2019 Chronic low back pain History of cervical fracture History of fracture of right ankle Urolithiasis Surgical History (Updated 08/19/21 @ 13:39 by Lily Chua DO) History of bladder surgery Lifted History of hysterectomy GALO. 2018 History of cholecystectomy 2001 Family History (Updated 06/26/21 @ 14:09 by Elizabeth Daniels LPN) Dementia Father Mother Cancer Father SQUAMOUS CELL CARCINOMA Social History Smoking and tobacco/nicotine status: never used tobacco/nicotine Alcohol intake: never Substance/Drug Use: never Marital status: Current occupational status: retired Pertinent Exam Findings alert, oriented x 3, operative site marked and procedure specific exam findings Left knee normal hip ROM with no pain Knee ROM 0 to greater than 120 degrees Patellar crepitus with ROM Medial joint line tenderness to palpation Lateral joint line tenderness to palpation Mild joint effusion 10 degrees of Varus deformity, correctable on exam Stable Varus and Valgus stress Gross motor sensory intact Recommendations Surgery/Procedure today Other Plans: Plan to proceed to the OR today with left total knee arthroplasty Rex robotic assisted. She is cleared to preoperative clearance process she is also been tested for any metal allergies and cleared by the environmental engineering assistant to proceed with implantation of total knee arthroplasty. All questions answered at this time. Coding Level of Care Code Acute Code for Kiki Motley
[2023-07-27 12:12] LABS: Bilirubin Urine Neg (Negative); Blood Urine Neg (Negative); Glucose Urine UA Norm (Normal); Ketones Urine 1+ (Negative); Leukocyte Esterase Urine Negative (Negative); Nitrate Urine Negative (Negative); Protein Urine Neg (Negative); Urine Appearance Clear (CLEAR); Urine Color Yellow (Yellow); Urobilinogen Urine Norm (Negative); pH Urine 7 (5-7)
[2023-07-27] MEDS: sodium chloride 0.9% 1,000 ML 30 ML IV (12:18)
[2023-07-27] MEDS: ceFAZolin 2,000 MG in sodium chloride 0.9% (plus) 50 ML 100 MG IV ×2 (12:22→20:53)
[2023-07-27 12:32] LABS: Anion Gap 13.1 (5-19); Blood Urea Nitrogen 11 mg/dL (8-23); Calcium 9.7 mg/dL (8.5-10.5); Carbon Dioxide 25 mmol/L (22-29); Chloride 103 mmol/L (98-107); Glomerular Filtration Rate 160.2 mL/min (90-130); Glucose 106 mg/dL (65-115); Osmolality Calculated 284 mOsm/kg (285-295); Potassium 4.1 mmol/L (3.5-5.1); Sodium 137 mmol/L (136-145)
[2023-07-27] MEDS: ketorolac 30 mg/mL INJ XX (13:48)
[2023-07-27] MEDS: tranexamic acid 1,000 mg/10mL SDV 1000 MG XX (13:50)
[2023-07-27] MEDS: ROPivacaine 0.2% Premix 100 mL 200 MG INTRA-ARTI (13:51)
[2023-07-27] MEDS: EPINEPHrine 1 mg/mL INJ XX (13:51)
--- NOTE | 2023-07-27 14:42 | P.BOP_ITS ---
Date of Procedure: 07/27/2023 Surgeon: Anthony Orlando DO Learning Support Services Director(s): Jose Orlando PA-C Procedure(s) performed: Left total knee arthroplasty Rex robotic assisted Findings of the procedure(s): Patient found to have severe left knee degenerative joint disease tricompartmental arthritis underwent left total knee arthroplasty procedure without complications or issues Estimated blood loss: 20 mL Specimen(s) removed: Tibia femur and patellar bone cuts Post-operative diagnosis: Left knee degenerative joint disease
--- NOTE | 2023-07-27 14:44 | P.OP_ITS ---
Operative Report Date of procedure: July 27, 2023 Surgeon: Anthony Orlando DO University Teacher: Jose Orlando PA-C: PA was necessary for assistance in this case with leg positioning retraction and protection of neurovascular structures as well as assistance in implantation wound closure and dressing application. Procedure: Preoperative diagnosis: Left knee degenerative joint disease Post-op diagnosis: Same Procedure done: Left total knee arthroplasty, cemented?robotic assisted Rex Implants: Kenmare triathlon size 4 femur CR cemented?left Kenmare triathlon size? 4 tibia universal baseplate cemented Kenmare triathlon symmetric patella size 33 mm Ziggy triathlon polyethylene 10mm Surgeon: Anthony Orlando DO Estimated blood?loss: 20 mL Tourniquet 54minutes IV fluids: 1000 mL Urine output: 1200mL Complications: None Condition: stable Disposition: floor Brief History: Patient is a 63-year-old female with with chronic?left knee degenerative joint disease.? Patient has been worked up in the outpatient setting in the orthopedic office at this point time through shared decision making given? [id number] arthritis as well as failed conservative treatment, and pt would?like to proceed with a?left total knee arthroplasty.? Through shared decision making elected to proceed with surgical intervention for?left total knee arthroplasty.? We talked about continued conservative treatment and surgical intervention as far as the risk benefits complications alternatives surgical and nonsurgical treatment options.? At this point time understanding patient risks with surgery pt agrees to proceed with surgical intervention.? Once again? risk with surgery include but are not?limited to make it better make it worse blood clot, heart attack, stroke, on the table, infection, injury to nerves or vessels, persistent pain, arthrofibrosis, implant failure.? Understanding these risks patient agrees to proceed with surgical intervention consent was obtained in the office.? All questions answered. Procedure: Patient was seen and evaluated in the preoperative holding area.? Consent was reviewed and signed with patient with plan for?left total knee arthroplasty.? All questions answered.? Correct extremity marked.? Patient seen and evaluated by the anesthesia department and once cleared for surgery was taken back to the operative suite.? Patient was placed into a supine position on the OR table.? All bony prominences were well-padded.? Patient was appropriately secured to the bed.? Patient underwent anesthesia per the anesthesia department.? Patient received spinal anesthesia and? Conner catheter was placed.? A nonsterile tourniquet was applied to the?left thigh.? At this point in time a final timeout performed.? Patient received appropriate preoperative antibiotics and TXA. Next the?left?lower extremity was then prepped and draped in standard orthopedic fashion. Esmarch tourniquet was used exsanguinate the?left?lower extremity.? Tourniquet was insufflated to 250 mmHg. A standard anterior incision was made over midline of the knee.? Sharp scalpel excision through skin and subcutaneous tissue full-thickness skin flaps were made.? Fascia was elevated off of the extensor retinaculum was stable with medial parapatellar arthrotomy was then made.? The performed standard sequential releases..? Immediately on entry into the joint patient was found to have severe eburnated bone and tricompartmental arthritic changes noted.? With significant osteophyte formation.? Next the the patella was then stuffed and the knee was then flexed.?? Ghazal was placed superiorly around the anterior aspect of the femur this was freed of synovium and I subsequently then placed by 2 femur pins to establish my femur arrays for the Rex robot.? These were then placed bicortically and? femur array was then appropriately secured with appropriate visualization.? Next attention was turned towards the tibial rays.? These were then drilled seq uentially bicortically in parallel fashion and intraincisional.? I then placed my guide as well as my tibial array on in place.? This was appropriately secured and had excellent visualization with the Rex robot.? Next the tibial checkpoint as well as femur checkpoint were then placed.? At this point time I then subsequently established my head center as well as my medial?lateral malleoli as well as my checkpoints.? Next utilizing standard Rex technology I then mapped out the appropriate points and confirmation points around the femur as well as the tibia in standard fashion.? Once this was then done I then removed all osteophytes in preparation for dynamic testing.? All osteophytes were removed as well as I removed the ACL and the PCL was excised due to its significant tearing and degeneration noted.? At this point time the knee was brought into full extension and we performed our standard evaluation of our gap balancing stressing his?ligaments and extension as well as flexion appr opriate adjustments were made to have appropriate gap balancing in both flexion and extension.? This plan for final counts.? We get a preoperative plan evaluating our implants which was a size 4 femur and a size 3 tibia.? Next we brought in the Rex robot and sequentially made our femur cuts.? All excess bony cuts were then removed.? Finally we made our tibial cut.? Once this was done a standard PCL retractor was then placed into this position I excised the medial and?lateral meniscus.? The tibial cut was then subsequently removed all excess bony debris was removed.? I then utilized a?lamina automation developer and remove the posterior osteophytes.? At this point time sized the tibia and confirmed this was a size 4.? I utilized our blunt probe to establish rotation of tibial implant.? Once this was done I then placed my tibia size 4 trial in appropriate position and then subsequently placed tibial pins to hold this into place placed a size10 mm poly as well as a size 4 femur which was appropriately impacted in place knee was then subsequently brought into extension. Trials were then assessed,? this was stable with varus valgus stress in extension as well as had symmetrical translation when brought into flexion demonstrating symmetrical gaps. I had excellent balance gaps in flexion and extension with varus and valgus stresses.? At this point I was satisfied with these implants these were then verified and opened on the back table size 4 tibia, size4 femur,? size 10mm polythickness.? We did confirm appropriate gap balancing and stresses as well as alignment utilizing? Rex and were satisfied with this plan.? ?At this point time with my trials in place I then towel clip the patella everted this made appropriate measurements subsequently utilizing freehand technique performed by patellar resurfacing this was confirmed to be appropriate resection and subsequently sized to be a 33 mm symmetric.? My drill peg guides were then clamped and appropriate position and appropriate position in the patella for appropriate tracking and parallel with the joint.? Pegs were drilled trial implant was placed and the knee was then subsequently ranged and found to have excellent patellar tracking.? Femur pegs were then drilled.? Satisfied with our tibial placement rotation I then utilized the keel punch and prepped the tibia.? At this point time all of our trial implants were removed.? All checkpoints as well as guidepins and arrays were removed and appropriate counts made.? The wound bed? was thoroughly irrigated and dried and prepped for cementation.? Cement was mixed on the back table.? Once cement was ready this was then covered onto the tibia and the tibial baseplate was then impacted and all excess cement was removed.? Next the polyethylene was then impacted into place on the tibial baseplate.? Next cement was placed onto the femur as well as under the femur implants and impacted in to place and all excess cement was extruded and removed.? Knee was taken into full extension? to clear all excess cement was removed.? Warm saline was placed over the joint.? I then towel clip patella and dried for cementation. cemented the patella into place.? This was all clamped and the cement was allowed to cure.? Thorough irrigation performed with pulse?lavage.? I then placed my periarticular injection while the cement was curing.? Once cured the knee was taken through range of motion and had excellent stability and gaps were balanced in flexion and extension.? Tourniquet was then deflated. hemostasis satisfactory with electrocautery.? Next I then subsequently closed the capsule with Ethibond suture as well as a running strata fix suture.? Knee was then taken through range of motion 30 times.? Next the skin was then closed in?layered fashion of running stratifix sutures of deep and subcutenous tissue and skin.? ?closed in flexion and Prineo glue was then placed over the incision this allowed to cure.? Incision was covered with Silverlon, with ABDs soft roll and Leonardo wrap.? Patient was then awakened from anesthesia and taken to PACU in stable condition. Disposition: Patient taken to PACU in stable condition will be admitted to the floor for pain control PT/OT weight-bear as tolerated?left?lower extremity dressing changes as needed, DVT prophylaxis. Pain control. Patient will receive appropriate postoperative antibiotics. patient will be seen today by the [facility] team for medical management.? Patient will follow up with the office in 2 weeks.? Patient understands agrees with current plan.? All questions answered.
--- NOTE | 2023-07-27 14:49 | ECG_ITS ---
[facility] Test Date: 2023-07-27 Pat Name: Gill Parry Department: Room: Gender: Female Transmitter Engineer In Charge: : 1960 Requested By: Donnie Portillo Order Number: [id number] Rosy MD: Kenny Perry M.D. Measurements Intervals [place] Rate: 98 P: 61 MT: 145 QRS: 41 QRSD: 91 T: 35 QT: 351 QTc: 450 Interpretive Statements SINUS RHYTHM NONSPECIFIC ST & T-WAVE ABNORMALITY No previous ECG available for comparison Electronically Signed On 07-28-2023 0:38:20 STATISTICIAN THEORETICAL by Kenny Perry M.D. [id number]
--- NOTE | 2023-07-27 14:51 | PM.PACU ---
PACU note Narrative: pt is a 63-year-old female who just underwent a Left knee total arthroplasty. Pt transferred to PACU in stable condition. Dressing is dry. pt is awake and alert. unable to assess motor or sensory due to residual spinal. Distal pulses are palpable toes are warm and well-perfused. Cap refill is normal and under 2 seconds. Pain is controlled. Exam: awake Disposition: admitted
--- NOTE | 2023-07-27 14:59 | SUR.PHASEI ---
1447 Upon applying cardiac leads pt was noted to be in SVT. Attempted to get pt to bear down in attempt to convert back to SR. Pt stated I cant. Stat EKG ordered. Sophia, RT, to PACU. Dr Portillo and Dr Haley both at bedside.
--- NOTE | 2023-07-27 15:03 | P.CONIM_ITS ---
Providers/Reason For Consult 2 Consulting Physician/Specialty*: ORTHOPEDIC Reason for Consult*: CHEST PAIN Attending Physician: Anthony Orlando DO Primary Care Provider: Lily Chua DO History of Present Illness History of Present Illness Gill Parry is a 63 year old female GERD, dyslipidemia, she is on estradiol, who presents [facility] who presents for l knee arthroplasty who presents [facility] postoperatively, postoperatively, patient was complaining of chest pain, EKG shows no acute ST-T wave changes, sinus tachycardia, denies any shortness of breath but does complain of chest pain, she is alert oriented x 2, following all commands, no smoking history, no cardiovascular history, no history of COPD, she has been complaining of right calf pain and spasms before her surgery earlier this morning Review of Systems 2 Const: Denies: fever(s) Card: Denies: chest pain Resp: Denies: dyspnea GI: Denies: abdominal pain Medications/Allergies Home Medications Medication Instructions Recorded Confirmed Last Taken Type docusate sodium 100 mg capsule 100 mg PO BID 06/26/21 07/23/23 07/26/23 History (Stool Softener) Custom Sole Supports #1 ea 08/11/22 06/04/23 Unknown Rx meloxicam 15 mg tablet 15 mg PO DAILY 1 month #90 tabs 11/21/22 07/23/23 07/20/23 Rx atorvastatin 20 mg tablet 20 mg PO DAILY #90 tabs 01/23/23 07/23/23 07/23/23 Rx magnesium citrate 125 mg capsule 250 mg PO DAILY 01/23/23 07/23/23 07/16/23 History pantoprazole 40 mg tablet,delayed 40 mg PO QAM #90 tabs 05/04/23 07/23/23 07/27/23 Rx release estradiol 1 mg tablet See Rx Instructions .Route 06/30/23 07/23/23 07/23/23 Rx .COMPLEX #30 tabs hydrocodone 5 mg-acetaminophen 325 1 tab PO Q6H PRN pain #14 tabs 07/21/23 07/23/23 Unknown Rx mg tablet ondansetron 4 mg disintegrating 4 mg PO Q6H PRN nausea and 07/21/23 07/23/23 Unknown Rx tablet vomiting #14 tabs Allergies Allergy/AdvReac Type Severity Reaction Status Date / Time sulfamethoxazole Allergy Mild STOMACH Verified 06/25/23 10:00 [From Bactrim] ACHE trimethoprim [From Bactrim] Allergy Mild STOMACH Verified 06/25/23 10:00 ACHE gabapentin Allergy dizziness Verified 06/25/23 10:00 hydromorphone [From Dilaudid] Allergy ADR-Dizzine Verified 07/23/23 11:04 ss venlafaxine AdvReac sweating, Verified 06/25/23 10:00 elevated BP Current Medications Generic Name Dose Route Start Last Admin Trade Name Freq PRN Reason Stop Dose Admin Sodium Chloride 1,000 mls @ 30 mls/hr 07/27/23 10:45 07/27/23 14:05 Sodium Chloride 0.9% IV 07/28/23 10:44 Infused .Q24H JEN Infusion PFSH Acute 2 PFSH: Medical History Right knee DJD Rectal prolapse surgery 2019 Chronic low back pain History of cervical fracture History of fracture of right ankle Urolithiasis Surgical History History of bladder surgery Lifted History of hysterectomy GALO. 2018 History of cholecystectomy 2001 Family History Father Dementia Cancer SQUAMOUS CELL CARCINOMA Mother Dementia Social History Smoking and tobacco/nicotine status: never used tobacco/nicotine Alcohol intake: never Substance/Drug Use: never Marital status: Current occupational status: retired Vitals/I&O/Wt Last Vital Signs O2 Flow Rate 6 07/27/23 14:46 07/27/23 07/27/23 07/27/23 06:59 14:59 22:59 Intake Total 1550 / 1550 Output Total 1220 / 1220 Balance 330 / 330 Weight last 48 hrs Weight 75 kg Physical Exam 2 Const: COMMON NORMALS: no acute distress and patient oriented x3 HENMT: COMMON NORMALS: normocephalic HEAD & SCALP: normocephalic Eye: COMMON NORMALS: Equal, round and reactive pupils present and EOMs intact bilaterally PUPIL: Yes Equal, round and reactive pupils present Neck/C-Spine: COMMON NORMALS: no JVD Resp: COMMON NORMALS: normal respiratory effort, No retractions, No use of accessory muscles and clear to auscultation bilaterally AUSCULTATION: clear to auscultation bilaterally Cardio: COMMON NORMALS: no JVD, regular rate, regular rhythm, S1 normal heart sound present and S2 normal heart sound present RATE: regular rate RHYTHM: regular rhythm HEART SOUNDS: S1 normal heart sound present and S2 normal heart sound present GI: COMMON NORMALS: Normal to inspection, nondistended, normoactive bowel sounds present and non-tender Extremity: COMMON NORMALS: no pedal edema NARRATIVE EXTREMITY EXAM: Right calf tenderness Neuro: COMMON NORMALS: patient oriented x3 and moves all extremities Psych: COMMON NORMALS: mental status grossly normal Data 07/27/23 11:00 07/27/23 11:50 A&P Assessment and plan (1) Chest pain: (2) S/P total knee arthroplasty: Consult Attestations 2 Medical Necessity Statement: Chest pain -No underlying cardiovascular disease -Does have dyslipidemia, is on estradiol -Current mild anterior chest pain discom fort, still under anesthetic effect -Monitor, nitro as needed for chest pain Plan ? Serial EKGs, serial troponins, telemetry monitoring -Aspirin, statin -Will consider further workup based on c linical progress Status post left knee arthroplasty -Pain control, anticoagulation as per or thopedic team -Full code -Eliquis for DVT prophylaxis Diagnoses Chest pain R07.9 S/P total knee arthroplasty Z96.659
--- NOTE | 2023-07-27 15:08 | XRR_ITS ---
PROCEDURE INFORMATION: Exam: XR Left Knee Exam date and time: 07/27/2023 3:12 PM Age: 63 years old Clinical indication: Device placement; Joint replacement hardware; Prior surgery; Surgery date: Post-operative (0-2 days); Surgery type: Left knee; Additional info: Post op TECHNIQUE: Imaging protocol: Radiologic exam of the left knee. Views: 1 or 2 views. COMPARISON: CT knee LT [facility] [id number] 06/18/2023 9:52 AM FINDINGS: Bones/joints: Interval left total knee replacement in anatomic position with no complication evident. Postoperative changes noted in the soft tissues. Soft tissues: See Bones/joints finding. XR/XR knee LT 1-2V 64064 IMPRESSION: Interval left knee arthroplasty.
--- NOTE | 2023-07-27 15:42 | USCV_ITS ---
Gill Parry Age: 63 Gender: F : 1960 Exam Date: 07/27/2023 15:54 Ordering Phys: Prashanth Haley MD Technologist: CT Exam Location: [facility] – [place]_ Indication: PROCEDURES: In addition, the posterior tibial and peroneal trunk were evaluated. On the right side, the common femoral, superficial femoral, profunda femoral, popliteal, posterior tibial, greater saphenous veins and the peroneal trunk were identified and interrogated in the standard fashion. FINDINGS: Normal 2-D Doppler and augmentation and compressibility throughout the lower extremity venous structures. Additional imaging through the proximal calf veins also reveals no thrombus. Limited evaluation of the greater saphenous vein is patent with no thrombus. CONCLUSIONS No DVT right lower extremity. Dr. Karine Wiggins DO (Electronically Signed) Final Date: 28 July 2023 15:09 S
[2023-07-27] MEDS: morphine 4 mg/mL SDV 1 mL IVP (16:11)
[2023-07-27] MEDS: lactated ringers 1,000 ML 100 ML IV (16:12)
[2023-07-27] MEDS: aspirin 81 mg EC Tablet PO (16:20)
--- NOTE | 2023-07-27 17:01 | ECG_ITS ---
[facility] Test Date: 2023-07-27 Pat Name: Gill Parry Department: Room: 266 Gender: Female Ice Guard Skating Rink: : 1960 Requested By: Prashanth Haley Order Number: [id number] Rosy MD: Kenny Perry M.D. Measurements Intervals [address] [place] Rate: 82 P: 66 NE: 136 QRS: 56 QRSD: 91 T: 49 QT: 365 QTc: 427 Interpretive Statements SINUS RHYTHM Compared to ECG 07/27/2023 14:54:35 T-wave abnormality no longer present Electronically Signed On 07-28-2023 1:02:53 CODER OPERATOR by Kenny Perry M.D. [id number]
[2023-07-27] MEDS: chlorhexidine gluconate 0.12% Btl 473 mL 30 ML MUCOUS MEM ×2 (17:16→20:53)
[2023-07-27] MEDS: iron polysaccharide complex 150 mg Capsule PO (17:19)
[2023-07-27] MEDS: mupirocin oint 22 gm 1 APPLIC NASAL (17:19)
[2023-07-27] MEDS: docusate sodium 100 mg Capsule PO (17:19)
[2023-07-27] MEDS: calcium carb-vit d 600mg/400unit 1 Tablet 1 EACH PO (17:19)
[2023-07-27 17:26] LABS: D Dimer <= 0.27 ug/mLFEU (0-0.59)
[2023-07-27 17:34] LABS: NT Pro B Type Natriuretic Pept 113 pg/mL (0-125); Thyroid Stimulating Hormone 1.25 uIU/mL (0.27-4.20)
[2023-07-27] MEDS: tranexamic acid 1,000 MG/100 ML PREMIX 600 MG IV (17:47)
[2023-07-27 18:11] LABS: Troponin(5th) Baseline < 6 ng/L (0-10)
[2023-07-27] MEDS: ondansetron 2 mg/ML SDV 2 mL 4 MG IVP (18:16)
[2023-07-27 18:20] LABS: Troponin 5 2HR Delta 0.00001 ABS# (0-10)
--- NOTE | 2023-07-27 18:51 | ANE.PACU2 ---
Inpatient post-anesthesia follow up: Airway intact: Yes Vital signs: Temperature 97.2 F Pulse Rate 81 Respiratory Rate 15 Blood Pressure 129/76 Pulse Oximetry 97 Oxygen Delivery Me thod Room Air Oxygen Flow Rate 6 Fraction of Inspir ed Oxygen Hydration adequate: Yes Nausea and vomiting: No Pain level: 1 Mental status: Baseline
[2023-07-27 21:15] LABS: Troponin 5 6HR Delta 0.00001 ng/L (0-12)
[2023-07-28] MEDS: acetaminophen 1,000 MG/100 ML PIGGYBACK 400 MG IV ×2 (03:18→10:54)
[2023-07-28] MEDS: ceFAZolin 2,000 MG in sodium chloride 0.9% (plus) 50 ML 100 MG IV ×2 (03:19→11:56)
[2023-07-28] MEDS: lactated ringers 1,000 ML 100 ML IV (03:20)
[2023-07-28 03:43] VITALS: BP 94/55; PULSE 65; RESP 17; TEMP 36.6; O2SAT 99
[2023-07-28 04:55] LABS: Basophils % 0.3 %; Eosinophils # 0.1 10^3/uL (0.0-0.8); Eosinophils % 0.7 %; Hematocrit 36.6 % (36-47); Lymphocytes # 2.1 10^3/uL (0.8-4.8); Mean Corpuscular Hemoglobin 29.8 pg (27-33); Mean Corpuscular Volume 93.4 fl (85-98); Mean Platelet Volume 9.6 fL (7.4-10.4); Monocytes # 0.7 10^3/uL (0.2-0.9); Monocytes % 6.8 %; Neutrophils # 6.64 10^3/uL (1.8-7.7); Neutrophils % 69.9 %; Nucleated Red Blood Cells % 0 %; Platelet Count 217 10^3/cmm (157-399); Red Blood Count 3.92 10^6/uL (3.85-5.65); Red Cell Distribution Width 12.5 % (12.1-15.1); White Blood Count 9.51 10^3/uL (3.29-11.43)
[2023-07-28 05:16] LABS: Anion Gap 11.9 (5-19); Blood Urea Nitrogen 6 mg/dL (8-23); Calcium 8.7 mg/dL (8.5-10.5); Carbon Dioxide 24 mmol/L (22-29); Chloride 108 mmol/L (98-107); Creatinine Clr Calc Pharmacy 75.9059; Glomerular Filtration Rate 160.2 mL/min (90-130); Glucose 94 mg/dL (65-115); Osmolality Calculated 287 mOsm/kg (285-295); Potassium 3.9 mmol/L (3.5-5.1); Sodium 140 mmol/L (136-145)
[2023-07-28 05:30] VITALS: PULSE 65
--- NOTE | 2023-07-28 07:38 | PC.PHAR ---
UNABLE TO COMPLETE MED REC- DISCHARGE ORDERS AND NEW SCRIPTS ENTERED
[2023-07-28 07:55] VITALS: BP 102/63; PULSE 68; RESP 18; TEMP 36.5; O2SAT 97
[2023-07-28] MEDS: oxyCODONE 5 mg IR Tab/Cap PO ×2 (07:55→12:59)
--- NOTE | 2023-07-28 08:23 | P.PN_ITS ---
<Statement entered by Anthony Orlando DO - 08/01/23 23:19> Patient seen and examined prior to discharge agree with PAs assessment and plan patient doing well and ready for discharge home today. Anthony Orlando DO Subjective 2 Subjective: Patient is 1 day postop left total knee arthroplasty. Denies any fevers. Denies any current chest pain. Patient has had some nausea and vomiting and trouble keeping food and fluids down last night. Her nausea has improved this morning and she did eat some breakfast. She has not gotten up with physical therapy yet. Pain is controlled. Vitals/I&O/Wt Last Vital Signs Temp 97.7 F 07/28/23 07:55 Pulse 68 07/28/23 07:55 Resp 18 07/28/23 07:55 BP 102/63 07/28/23 07:55 Pulse Ox 97 07/28/23 07:55 O2 Del Method Room Air 07/28/23 07:55 O2 Flow Rate 6 07/27/23 14:56 07/27/23 07/28/23 07/28/23 22:59 06:59 14:59 Intake Total 690 / 2240 1150 / 3390 240 / 240 Output Total 1450 / 2670 Balance 690 / 1020 -300 / 720 240 / 240 Weight last 48 hrs Weight 181 lb 14.4 oz Weight 165 lb 5.547 oz Weight 165 lb 5.547 oz Physical Exam 2 Const: COMMON NORMALS: no acute distress and alert Resp: COMMON NORMALS: normal respiratory effort and No retractions Cardio: COMMON NORMALS: Peripheral pulses 2+ throughout PERIPHERAL PULSES: Peripheral pulses 2+ throughout Extremity: NARRATIVE EXTREMITY EXAM: Left knee-dressing and bandage all intact in place and dry. Patient able to perform dorsiflexion and plantarflexion but unable to straight leg raise due to pain. Sensation to foot intact. Pedal pulse 2+. Neuro: SENSORIUM/ORIENTATION: Yes alert Skin: GENERAL SKIN EXAM: dry skin Urinary Catheter Management: Conner: Cath Placed During This Visit: yes, but has since been removed by the nurse Reason for Continuing Indwelling Catheter: Decision to DC Catheter Date Urinary Catheter Removed: 07/28/23 Time Urinary Catheter Discontinued: 06:23 Data 07/28/23 04:03 07/28/23 04:03 Xray Ortho: Radiologist's impression: Procedure(s): XR knee LT 1-2V 20727 Accession Number(s): [id number] Report Number: [id number] PROCEDURE INFORMATION: Exam: XR Left Knee Exam date and time: 07/27/2023 3:12 PM Age: 63 years old Clinical indication: Device placement; Joint replacement hardware; Prior surgery; Surgery date: Post-operative (0-2 days); Surgery type: Left knee; Additional info: Post op TECHNIQUE: Imaging protocol: Radiologic exam of the left knee. Views: 1 or 2 views. COMPARISON: CT knee LT [facility] [id number] 06/18/2023 9:52 AM FINDINGS: Bones/joints: Interval left total knee replacement in anatomic position with no complication evident. Postoperative changes noted in the soft tissues. Soft tissues: See Bones/joints finding. XR/XR knee LT 06-02V 63295 IMPRESSION: Interval left knee arthroplasty. A&P Assessment and plan (1) Status post total left knee replacement using cement: Plan Plan: -Imaging and Labs reviewed -Hospitalist on board for medical management. -DVT prophylaxis- elquis 2.5 mg BID -Weight-bear as tolerated on Left leg -Pain control -PT Pt is doing well 1 day postop Left total knee replacement. Pt is cleared for discharge home today, pending hospitalist evaluation and clearance to D/C home. Attestations 2 Medical Necessity Statement*: Ongoing care for left total knee arthroplasty Coding Level of Care Code Acute Code for Chg Fwd Diagnoses Status post total left knee replacement using cement Z96.652
--- NOTE | 2023-07-28 09:35 | PC.CHAP ---
Pastoral Care Encounter/Spiritual Assessment Type of Contact [] Declined stock controller visit [] Patient/Family/Request visit [] Outpatient visit [] Follow-up visit [] Physician referral [] Code/Alert [x] Routine visit [] Staff referral [] Actively dying [] Patient sleeping [] Family support [] [] Out of room [] Palliative care [] [] Receiving care in room [] Pre-surgical visit [] Trauma [] Long length of stay [] ICU visit [] Other: Relational/Emotional Strength [x] Patient feels connected with others/family/visitors/staff [] Distress [] Loneliness/isolation [] Abandonment Spirituality of Patient [x] Person of Jailene [] Attends Sabianism of their Jailene [x] Believes in Prayer [] Reads Bible or Yazidism materials [] There are Spiritual issues to be addressed Nanoscience Technician Interventions [x] Prayer [] Active listening [] Non-anxious presence [x] Spiritual/emotional support [] Crisis/trauma care [] Spiritual counseling [] Bereavement support [] Provided bereavement packet [] Provided Bible/devotional materials [] Provided toy/stuffed animal, coloring book to patient or family member [] Provided Communion [] Anointing/[place] [] Salvation [x] Completed spiritual assessment [] Other: Impact on Illness or Injury [] Angry [] Fearful [] Anxious [] Often cries [] Exhaustion [] Unable to work [] Unable to attend religion [] Unable to walk/stand [] Unable to read [] Unable to drive [] Unable to eat/drink [] Unable to sleep [] Unable to be with family [] Patient intubated [] Other: Summary Time spent with patient 5 min
[2023-07-28] MEDS: atorvastatin 40 mg Tablet 20 MG PO (10:16)
[2023-07-28] MEDS: apixaban 5 mg Tablet 2.5 MG PO (10:17)
[2023-07-28] MEDS: aspirin 81 mg EC Tablet PO (10:17)
[2023-07-28] MEDS: multivitamin therapeutic Tablet 1 TAB PO (10:17)
[2023-07-28] MEDS: calcium carb-vit d 600mg/400unit 1 Tablet 1 EACH PO (10:18)
[2023-07-28] MEDS: iron polysaccharide complex 150 mg Capsule PO (10:18)
[2023-07-28] MEDS: docusate sodium 100 mg Capsule PO (10:19)
[2023-07-28] MEDS: ketorolac 30 mg/mL INJ 15 MG IVP (10:19)
[2023-07-28] MEDS: chlorhexidine gluconate 0.12% Btl 473 mL 30 ML MUCOUS MEM (10:19)
[2023-07-28] MEDS: mupirocin oint 22 gm 1 APPLIC NASAL (10:19)
--- NOTE | 2023-07-28 10:26 | P.DS_ITS ---
Discharge Providers Date of Admission: 07/27/23 15:05 Date of Discharge: July 28, 2023 Attending Provider at Admission: Anthony Orlando DO Attending Provider at Discharge: Anthony Orlando DO Consults: Hospitalist Dr. Haley Primary Care Provider: Lily Chua DO Diagnoses at Discharge Discharge Diagnosis (1) S/P total knee arthroplasty: Status: Acute (2) Chest pain: Status: Resolved Reason for Visit Reason for Visit: M17.12 Brief History: S/p left total knee arthroplasty Hospital Course Hospital Course Patient presented to the preoperative holding area with plan for left total knee arthroplasty after patient has been worked up in the outpatient setting for failed conservative treatment of [left ] knee degenerative joint disease. Once cleared by anesthesia for surgery patient subsequently was taken back to the operative suite underwent anesthesia per anesthesia department and then subsequently underwent a [ left] total knee arthroplasty. Procedure was performed without any complications patient patient was taken to PACU in stable condition. Well in PACU she did complain of some chest pain. Hospitalist was consulted and on board for medical management this chest pain was appropriately worked up and did resolve during the hospitalization and no issues on postoperative day 1. Troponins were tracked and were normal at this point in time and resolution of her chest pain. was admitted to the floor postoperatively internal medicine was consulted and on board for medical management and assistance with care. Patient received appropriate PT/OT, postoperative antibiotics, postoperative TXA, pain control, postoperative DVT prophylaxis. Elevation and ice. Patient encouraged for knee range of motion allowed weightbearing as tolerated to the operative lower extremity. Dressing was changed as needed, labs were monitored daily. Patient recovered well postoperatively and worked well and progressed well with therapy. It was determined on postoperative day [1 ] the patient was stable for discharge from an orthopedic standpoint and medicine. Patient was comfortable with discharge and plan was discharged home. Patient received appropriate discharge instructions as well as pain medication and DVT prophylaxis postoperatively. Given appropriate instructions for dressing management. Patient will follow-up with Dr. Orlando/orthopedics in the office in 2 weeks. All questions answered. Understand if there is any issues questions or concerns and contact the office. Physical Exam Const: COMMON NORMALS: no acute distress and alert Resp: COMMON NORMALS: normal respiratory effort and No retractions Cardio: COMMON NORMALS: Peripheral pulses 2+ throughout PERIPHERAL PULSES: Peripheral pulses 2+ throughout Extremity: NARRATIVE EXTREMITY EXAM: Left knee-dressing and bandage all intact in place and dry. Patient able to perform dorsiflexion and plantarflexion but unable to straight leg raise due to pain. Calves are soft and nontender sensation to foot intact. Pedal pulse 2+. Neuro: SENSORIUM/ORIENTATION: Yes alert Skin: GENERAL SKIN EXAM: dry skin Urinary Catheter Management: Conner: Cath Placed During This Visit: yes, but has since been removed by the nurse Reason for Continuing Indwelling Catheter: Decision to DC Catheter Date Urinary Catheter Removed: 07/28/23 Time Urinary Catheter Discontinued: 06:23 Discharge Data Studies Completed and Pending Completed Studies During Hospitalization Category Date Time Status XR knee LT 1-2V [id number] Routine Exams 07/27/23 15:08 Completed Pending at discharge Category Date Time Status Basic Metabolic Panel AM LABS Lab 07/29/23 04:00 Ordered Basic Metabolic Panel AM LABS Lab 07/30/23 04:00 Ordered Complete Blood Count w/Auto AM LABS Lab 07/29/23 04:00 Ordered Complete Blood Count w/Auto AM LABS Lab 07/30/23 04:00 [place] [id number] Routine Ultrasound 07/27/23 15:42 Taken Radiology Impressions Knee X-Ray 07/27/23 15:08 IMPRESSION: Interval left knee arthroplasty. Laboratory Results WBC 9.51 10^3/uL (3.29-11.43) 07/28/23 04:03 RBC 3.92 10^6/uL (3.85-5.65) 07/28/23 04:03 Hgb 11.70 g/dL (11.27-16.99) 07/28/23 04:03 Hct 36.6 % (36-47) 07/28/23 04:03 MCV 93.4 fl (85-98) 07/28/23 04:03 MCH 29.8 pg (27-33) 07/28/23 04:03 MCHC 32.0 g/dL (30-55) 07/28/23 04:03 RDW 12.5 % (12.1-15.1) 07/28/23 04:03 Plt Count 217 10^3/cmm (157-399) 07/28/23 04:03 MPV 9.6 fL (7.4-10.4) 07/28/23 04:03 Neut % (Auto) 69.9 % 07/28/23 04:03 Lymph % (Auto) 22.0 % 07/28/23 04:03 [place] % (Auto) 6.8 % 07/28/23 04:03 Eos % (Auto) 0.7 % 07/28/23 04:03 Baso % (Auto) 0.3 % 07/28/23 04:03 Neut # (Auto) 6.64 10^3/uL (1.8-7.7) 07/28/23 04:03 Lymph # (Auto) 2.1 10^3/uL (0.8-4.8) 07/28/23 04:03 [place] # (Auto) 0.7 10^3/uL (0.2-0.9) 07/28/23 04:03 Eos # (Auto) 0.1 10^3/uL (0.0-0.8) 07/28/23 04:03 Baso # (Auto) 0.0 10^3/uL (0.0-0.1) 07/28/23 04:03 Nucleated RBC % (auto) 0 % 07/28/23 04:03 Nucleated RBCs # 0.0 /100WBC 07/28/23 04:03 D-Dimer <= 0.27 ug/mLFEU (0-0.59) 07/27/23 16:53 Sodium 140 mmol/L (136-145) 07/28/23 04:03 Potassium 3.9 mmol/L (3.5-5.1) 07/28/23 04:03 Chloride 108 mmol/L (98-107) H 07/28/23 04:03 Carbon Dioxide 24 mmol/L (22-29) 07/28/23 04:03 Anion Gap 11.9 (5-19) 07/28/23 04:03 BUN 6 mg/dL (8-23) L 07/28/23 04:03 Creatinine 0.4 mg/dL (0.5-0.9) L 07/28/23 04:03 GFR Calculation 160.2 mL/min (90-130) H 07/28/23 04:03 Glucose 94 mg/dL (65-115) 07/28/23 04:03 Calculated Osmolality 287 mOsm/kg (285-295) 07/28/23 04:03 Calcium 8.7 mg/dL (8.5-10.5) 07/28/23 04:03 Troponin T Baseline < 6 ng/L (0-10) 07/27/23 11:50 Troponin T 120 Minute 6.0 ng/L (0-10) 07/27/23 16:53 Delta Troponin T 0.47955 ABS# (0-10) 07/27/23 16:53 Troponin T Hi Sens 6Hr 6.00 ng/L (0-10) 07/27/23 20:53 Troponin T Hi Sens 6Hr Delta 0.49192 ng/L (0-12) 07/27/23 20:53 NT-Pro-B Natriuret Pep 113 pg/mL (0-125) 07/27/23 16:53 TSH 1.25 uIU/mL (0.27-4.20) 07/27/23 16:53 Urine Color Yellow (Yellow) 07/27/23 11:35 Urine Appearance Clear (CLEAR) 07/27/23 11:35 Urine pH 7 (5-7) 07/27/23 11:35 Ur Specific [place] 1.010 (1.005-1.030) 07/27/23 11:35 Urine Protein Neg (Negative) 07/27/23 11:35 Urine Glucose (UA) Norm (Normal) 07/27/23 11:35 Urine Ketones 1+ (Negative) H 07/27/23 11:35 Urine Blood Neg (Negative) 07/27/23 11:35 Urine Nitrate Negative (Negative) 07/27/23 11:35 Urine Bilirubin Neg (Negative) 07/27/23 11:35 Urine Urobilinogen Norm mg/dL (Negative) 07/27/23 11:35 Ur Leukocyte Esterase Negative (Negative) 07/27/23 11:35 Blood Type B Negative 07/27/23 11:00 Rho(D) Type Negative 07/27/23 11:00 Antibody Screen Negative 07/27/23 11:00 Vitals Last Vital Signs Temp 97.7 F 07/28/23 07:55 Pulse 68 07/28/23 07:55 Resp 18 07/28/23 07:55 BP 102/63 07/28/23 07:55 Pulse Ox 97 07/28/23 07:55 O2 Del Method Room Air 07/28/23 07:55 O2 Flow Rate 6 07/27/23 14:56 Discharge Plan Discharge Patient Disposition: Home Condition: Stable Prescriptions: New Eliquis 2.5 mg tablet 2.5 mg PO BID 14 Days Qty: 28 0RF oxycodone 5 mg tablet 5 mg PO Q6H PRN (Reason: pain postop) 7 Days Qty: 28 0RF Continued docusate sodium [Stool Softener] 100 mg capsule 100 mg PO BID magnesium citrate 125 mg capsule 125 mg PO BID atorvastatin 20 mg tablet 20 mg PO DAILY Qty: 90 1RF pantoprazole 40 mg tablet,delayed release (DR/EC) 40 mg PO QAM Qty: 90 1RF cyanocobalamin (vitamin B-12) 1,000 mcg Tablet, Sublingual 1,000 mcg SUBLINGUAL DAILY ondansetron 4 mg tablet,disintegrating 4 mg PO Q6H PRN (Reason: nausea and vomiting) Qty: 14 0RF Held estradiol 1 mg tablet 1 mg PO BEDTIME Hold Instructions: Resume on 08/10/23. Hold as this can increase risk of blood clots, check with primary care physician Discontinued meloxicam 15 mg tablet 15 mg PO DAILY 30 Days Qty: 90 1RF hydrocodone-acetaminophen 5-325 mg tablet 1 tab PO Q6H PRN (Reason: pain) Qty: 14 0RF Discharge Orders: Discharge Order (Routine); Ordered 07/28/23 Ordered By: Anthony Orlando Other Ambulatory Orders: Physical Therapy Outpatient in Home Eval and Treat Other (Order) Facility: [facility] - Location: Physical Therapy Ordered By: Anthony Orlando Referrals: [facility] for Therapy [Other] (Someone from Out patient therapy will call you to arrange a date & time to follow up for therapy at the [facility]. ) Lily Chua DO [Primary Care Provider] - (We have notified your physician's clinic of the need for a follow-up appointment to be scheduled. If you have not heard from them within the next 2 business days, please call them directly. ) Anthony Orlando DO [Physician] - 08/13/23 11:00 am Discharge Diet: Regular Discharge Activity: Limit activity as instructed Patient Instructions: Oxycodone, Rapid Release (By mouth), Ondansetron (By mouth) (Zofran, Zofran ODT, Zuplenz), Apixaban (By mouth) (Eliquis), Precautions after Total Joint Replacement Surgery (DC), Joint Replacement Surgery (DC) Activity Restrictions/Additional Instructions: Keep incisions clean dry and intact, leave Silverlon bandage dressings on in place for 7 days after that may rinse incisions with warm soapy water pat dry and redress with a dry dressing. Patient may weight-bear as tolerate to the operative extremity Utilize crutches as needed Encourage knee range of motion Ice and elevate as needed for pain and swelling Take pain medication as prescribed Take antinausea medication as needed The prescribed Eliquis twice daily for the next 14 days for blood clot prevention May supplement for pain with ibuprofen [id number] as needed No baths or soaks Follow-up in the orthopedic office in 2 weeks Contact the office for any questions or concerns Discharge Attestations Time Spent in Discharge Care*: less than 30 min Quality Metrics Clinical Quality Measures [ No reported AMI, CVA or VTE this stay] Coding Level of Care Code Acute Code for Chg Fwd Diagnoses S/P total knee arthroplasty Z96.659 Chest pain R07.9
--- NOTE | 2023-07-28 10:46 | P.PN_ITS ---
Subjective 2 Subjective: Patient was seen this morning, no chest pain throughout the night, currently asymptomatic, patient will be discharged today, advised patient that if she continues to have discharge, please come back to emergency room or see primary care provider for consideration of stress testing, currently denies any calf pain or calf swelling Vitals/I&O/Wt Last Vital Signs Temp 97.7 F 07/28/23 07:55 Pulse 68 07/28/23 07:55 Resp 18 07/28/23 07:55 BP 102/63 07/28/23 07:55 Pulse Ox 97 07/28/23 07:55 O2 Del Method Room Air 07/28/23 07:55 O2 Flow Rate 6 07/27/23 14:56 07/27/23 07/28/23 07/28/23 22:59 06:59 14:59 Intake Total 690 / 2240 1150 / 3390 240 / 240 Output Total 1450 / 2670 Balance 690 / 1020 -300 / 720 240 / 240 Weight last 48 hrs Weight 82.508 kg Weight 75 kg Weight 75 kg Physical Exam 2 Const: COMMON NORMALS: no acute distress and patient oriented x3 Resp: COMMON NORMALS: normal respiratory effort, No retractions, No use of accessory muscles and clear to auscultation bilaterally AUSCULTATION: clear to auscultation bilaterally Cardio: COMMON NORMALS: regular rate, regular rhythm, S1 normal heart sound present and S2 normal heart sound present RATE: regular rate RHYTHM: r egular rhythm HEART SOUNDS: S1 normal heart sound present and S2 normal heart sound present GI: COMMON NORMALS: Normal to inspection, nondistended, normoactive bowel sounds present and non-tender Extremity: COMMON NORMALS: no pedal edema Neuro: COMMON NORMALS: patient oriented x3 Psych: COMMON NORMALS: mental status grossly normal Urinary Catheter Management: Conner: Cath Placed During This Visit: yes, but has since been removed by the nurse Reason for Continuing Indwelling Catheter: Decision to DC Catheter Date Urinary Catheter Removed: 07/28/23 Time Urinary Catheter Discontinued: 06:23 Data 07/28/23 04:03 07/28/23 04:03 A&P Assessment and plan (1) Chest pain: (2) S/P total knee arthroplasty: Plan Chest pain, no active chest pain, troponins within normal limits, microcolitis fever, chest pain, emergency room Attestations 2 Medical Necessity Statement*: Patient will be discharged today Diagnoses Chest pain R07.9 S/P total knee arthroplasty Z96.659
[2023-07-28 11:51] VITALS: BP 103/65; PULSE 66; RESP 18; TEMP 36.6; O2SAT 100
[2023-07-28 12:59] VITALS: RESP 18
[2023-07-28 14:18] VITALS: RESP 18
== END 2023-07-28 14:05 | disposition home or self-care (01) ==
LOC: MEDSURG 15:05
PROVIDERS: Family Medicine; Physician Assistant; Admitting Provider Student in an Organized Health Care Education/Training Program; PCP Family Medicine; Visit Provider Student in an Organized Health Care Education/Training Program
PROC: 8E0Y0CZ Robotic Assisted Procedure of Lower Extremity, Open Approach (ICD-10-PCS; CPT 27447; principal; 2023-07-27 12:20)
DX: M17.11 Unilateral primary osteoarthritis, right knee (principal); K21.9 Gastro-esophageal reflux disease without esophagitis; E78.5 Hyperlipidemia, unspecified
CPT/HCPCS: 27447; 36415; 51702; 73560; 80048; 81003; 83880; 84443; 84484; 85025; 85378; 86850; 86900; 93005; 93971; 97110; 97116; 97161; 97165; C1776; G0378; J0131; J0171; J0690; J1885; J2250; J2270; J2405; J2704; J2795; J3490; J7030; J7120

== ENCOUNTER → 2023-08-07 10:15 | Outpatient (BNVA) | payer OTHER, SELFPAY | PROVIDERS: Visit Provider Student in an Organized Health Care Education/Training Program | DX: Z96.652 Presence of left artificial knee joint (principal) | CPT/HCPCS: 73560; 73565 ==

== ENCOUNTER 2023-08-07 11:13 | Outpatient (RCR) | payer OTHER, SELFPAY | END 2023-08-30 23:59 | disposition home or self-care (01) | LOC: SPT 11:13 | PROVIDERS: Visit Provider Student in an Organized Health Care Education/Training Program | DX: Z47.1 Aftercare following joint replacement surgery (principal); Z96.652 Presence of left artificial knee joint | CPT/HCPCS: 97110; 97161 ==

== ENCOUNTER → 2023-08-14 10:04 | Outpatient (BNVA) | payer OTHER, SELFPAY | PROVIDERS: PCP Family Medicine; Visit Provider Physician Assistant | DX: Z96.652 Presence of left artificial knee joint (principal) | CPT/HCPCS: 73560; 73565 ==

== ENCOUNTER 2023-08-31 06:00 | Outpatient (RCR) | payer OTHER, SELFPAY | END 2023-09-29 23:59 | disposition home or self-care (01) | LOC: SPT 06:00 | PROVIDERS: PCP Family Medicine; Visit Provider Student in an Organized Health Care Education/Training Program | DX: Z47.1 Aftercare following joint replacement surgery (principal); Z96.652 Presence of left artificial knee joint | CPT/HCPCS: 97110 ==

== ENCOUNTER → 2023-10-09 09:39 | Outpatient (BNVA) | payer OTHER, SELFPAY | PROVIDERS: PCP Family Medicine; Visit Provider Physician Assistant | DX: Z96.652 Presence of left artificial knee joint (principal) | CPT/HCPCS: 73560; 73565 ==

== ENCOUNTER 2023-11-03 09:35 | Outpatient (CLI) | payer OTHER, SELFPAY ==
--- NOTE | 2023-11-03 10:00 | MM_ITS ---
WS: [id number] BILATERAL 3D TOMOSYNTHESIS DIGITAL SCREENING MAMMOGRAPHY WITH CAD CLINICAL INFORMATION: screening HISTORY: Screening mammogram. No current complaints. COMPARISON: 2022 TECHNIQUE: Bilateral CC and MLO views. FINDINGS: The breasts are composed of heterogeneous fibroglandular density tissue, which can limit the detectio n of small underlying mass lesions. No suspicious mass, asymmetry, calcifications, or architectural d istortion. No evidence of malignancy. A few incidental punctate calcifications. MM/[place] [id number] IMPRESSION: BI-RADS: 2-Benign FOLLOW UP: 1 Year Follow-up Recommend return to annual screening mammography.
== END 2023-11-03 09:36 | disposition home or self-care (01) ==
LOC: RAD 09:35
PROVIDERS: PCP Family Medicine; Visit Provider Family Medicine
DX: Z12.31 Encounter for screening mammogram for malignant neoplasm of breast (principal); R92.333 Mammographic heterogeneous density, bilateral breasts
CPT/HCPCS: 77063; 77067

== ENCOUNTER → 2024-01-05 10:10 | Outpatient (BNVA) | payer OTHER, SELFPAY | PROVIDERS: PCP Family Medicine; Visit Provider Student in an Organized Health Care Education/Training Program | DX: Z96.652 Presence of left artificial knee joint (principal); M17.11 Unilateral primary osteoarthritis, right knee | CPT/HCPCS: 73560; 73565 ==

== ENCOUNTER → 2024-02-17 10:23 | Outpatient (BNVA) | payer OTHER, SELFPAY | PROVIDERS: PCP Family Medicine | DX: E78.5 Hyperlipidemia, unspecified (principal) | CPT/HCPCS: 80053; 80061; 82607; 84439; 84443 ==

== ENCOUNTER → 2024-03-23 10:57 | Outpatient (BNVA) | payer OTHER, SELFPAY | PROVIDERS: PCP Family Medicine; Visit Provider Physician Assistant | DX: Z01.818 Encounter for other preprocedural examination (principal) | CPT/HCPCS: 36415; 80053; 81001; 85025 ==

== ENCOUNTER 2024-04-05 10:26 | Outpatient (CLI) | payer OTHER, SELFPAY ==
--- NOTE | 2024-04-05 11:00 | CT_ITS ---
WS: [id number] CT RIGHT knee, noncontrast HISTORY: M17.11 - Unilateral primary osteoarthritis, right knee TECHNIQUE: Protocol for [facility] total knee replacement has been obtained. This includes axial imaging th rough the RIGHT hip, RIGHT knee and RIGHT ankle. DLP: 833.20 mGy.cm COMPARISON: None available. Pelvis: No destructive bone lesions. No fracture. RIGHT hip: Moderate tricompartment osteoarthritis. Marginal osteophytes in all 3 compartments with radha int space narrowing. No fractures. Slight lateral subluxation of the patella. Small suprapatellar amina nt effusion. No soft tissue mass. RIGHT ankle: Negative. CT/CT knee RT [facility] [id number] IMPRESSION: CT imaging provided for [facility] robotic total knee replacement.
== END 2024-04-05 10:27 | disposition home or self-care (01) ==
LOC: RAD 10:26
PROVIDERS: PCP Family Medicine; Visit Provider Student in an Organized Health Care Education/Training Program
DX: Z01.818 Encounter for other preprocedural examination (principal); M17.11 Unilateral primary osteoarthritis, right knee; M25.761 Osteophyte, right knee
CPT/HCPCS: 73700

== ENCOUNTER 2024-04-18 10:02 | Observation (INO) | payer OTHER, SELFPAY ==
[2024-04-18] VITALS (22 sets, daily range): BP systolic 100–134; BP diastolic 61–76; PULSE 61–97; RESP 12–23; TEMP 36.1–36.8; O2SAT 93–99; BMI 26.3
[2024-04-18] MEDS: acetaminophen 1,000 MG/100 ML PIGGYBACK 400 MG IV ×3 (06:25→22:23)
[2024-04-18] MEDS: sodium chloride 0.9% 1,000 ML 30 ML IV (06:26)
[2024-04-18] MEDS: scopolamine 1.5 Patch 1 PATCH TRANSDERMA (06:27)
[2024-04-18] MEDS: ketorolac 30 mg/mL INJ IVP (06:27)
[2024-04-18 06:34] LABS: Basophils # 0.1 10^3/uL (0.0-0.1); Basophils % 0.7 %; Eosinophils # 0.1 10^3/uL (0.0-0.8); Eosinophils % 1.8 %; Hematocrit 45.8 % (36-47); Lymphocytes # 2.3 10^3/uL (0.8-4.8); Lymphocytes % 32.1 %; Mean Corpuscular Hemoglobin 29.5 pg (27-33); Mean Corpuscular Volume 89.5 fl (85-98); Mean Platelet Volume 9.4 fL (7.4-10.4); Monocytes # 0.6 10^3/uL (0.2-0.9); Monocytes % 8.1 %; Neutrophils # 4.15 10^3/uL (1.8-7.7); Neutrophils % 57.2 %; Nucleated Red Blood Cells % 0 %; Platelet Count 275 10^3/cmm (157-399); Red Blood Count 5.12 10^6/uL (3.85-5.65); Red Cell Distribution Width 12.4 % (12.1-15.1); White Blood Count 7.26 10^3/uL (3.29-11.43)
[2024-04-18] MEDS: lactated ringers 500 ML IV (06:35)
[2024-04-18 06:49] LABS: Anion Gap 13.8 (5-19); Blood Urea Nitrogen 18 mg/dL (8-23); Calcium 10.9 mg/dL (8.5-10.5); Carbon Dioxide 28 mmol/L (22-29); Chloride 103 mmol/L (98-107); Creatinine Clr Calc Pharmacy 71.1495; Glomerular Filtration Rate 159.7 mL/min (90-130); Glucose 94 mg/dL (65-115); Osmolality Calculated 294 mOsm/kg (285-295); Potassium 3.8 mmol/L (3.5-5.1); Sodium 141 mmol/L (136-145)
--- NOTE | 2024-04-18 06:57 | W.PM.OPSUD ---
Surgery/Procedure H&P Update DATE OF PROCEDURE: April 18, 2024 DATE H&P PERFORMED: 03/23/24 H&P UPDATE INFORMATION: I have reviewed H&P completed within last 30 days, I have examined patient prior to procedure and No changes to prior documentation PREOP DIAGNOSIS: Right knee DJD PRIMARY INDICATION FOR PROCEDURE: Right knee DJD PLANNED PROCEDURE: Operation Date: 04/18/24 07:00 Proposed Procedures p Rex Robot Total Knee Arthroplasty(Right) - Anthony Orlando DO
--- NOTE | 2024-04-18 07:08 | P.ANESASSM_ITS ---
Pre-Anesthetic Assessment Height/Weight: Height 1.68 m Weight 73.936 kg Temp Pulse Resp BP Pulse Ox O2 Del Method 97.8 F 71 16 134/76 99 Room Air 04/18/24 06:07 04/18/24 06:07 04/18/24 06:07 04/18/24 06:07 04/18/24 06:07 04/18/24 06:07 Preop Diagnosis: Right knee DJD Operation Date: 04/18/24 07:00 Proposed Procedures p Rex Robot Total Knee Arthroplasty(Right) - Anthony Orlando DO Familial anesthetic complications: PONV Was Beta Marcela taken within 24 hours: N/A Was Clonidine taken within 24 hours: N/A Last intake: Intake Last Liquid Date 04/17/24 Last Liquid Time 21:30 Last Solid Date 04/17/24 Last Solid Time 20:30 Social No alcohol and No tobacco Exam alert, oriented x 3, clear to auscultation bilaterally and regular rate & rhythm Airway Mallampati: Class II Dentition: full CV/HEM Hypertension GI Gastroesophageal Reflux Disease Metabolic Hyperlipidemia Anesthetic Plan ASA status: 3 Anesthesia: Regional (specify below) Risk of > 500 ml blood loss (7ml/kg in children): No Medications/Allergies Home Medications Medication Instructions Recorded Confirmed Last Taken Type docusate sodium 100 mg capsule 100 mg PO BID 06/26/21 04/14/24 04/17/24 History (Stool Softener) magnesium citrate 125 mg capsule 250 mg PO BID 01/23/23 04/14/24 04/17/24 History cyanocobalamin (vitamin B-12) 1,000 mcg sublingual DAILY 07/28/23 04/14/24 04/17/24 History 1,000 mcg sublingual tablet meloxicam 15 mg tablet 15 mg PO DAILY 1 month #30 tabs 02/17/24 04/14/24 04/17/24 Rx atorvastatin 20 mg tablet 20 mg PO DAILY 04/14/24 04/14/24 04/17/24 History clonidine HCl 0.1 mg tablet 0.05 mg PO DAILY hot flashes 04/14/24 04/14/24 04/17/24 History pantoprazole 40 mg tablet,delayed 40 mg PO DAILY 04/14/24 04/14/24 04/17/24 History release Allergies Allergy/AdvReac Type Severity Reaction Status Date / Time sulfamethoxazole Allergy Mild STOMACH Verified 04/14/24 08:46 [From Bactrim] ACHE trimethoprim [From Bactrim] Allergy Mild STOMACH Verified 04/14/24 08:46 ACHE gabapentin Allergy dizziness Verified 04/14/24 08:46 hydromorphone [From Dilaudid] Allergy ADR-Dizzine Verified 04/14/24 08:46 ss venlafaxine AdvReac sweating, Verified 04/14/24 08:46 elevated BP Current Medications Generic Name Dose Route Start Last Admin Trade Name Freq PRN Reason Stop Dose Admin Sodium Chloride 1,000 mls @ 30 mls/hr 04/18/24 06:00 04/18/24 06:26 Sodium Chloride 0.9% IV 04/19/24 05:59 30 mls/hr .Q24H JEN Administration PFSH Anesthesia Medical History Elevated blood pressure reading in office without diagnosis of hypertension Right knee DJD Rectal prolapse surgery 2019 Chronic low back pain History of cervical fracture History of fracture of right ankle Urolithiasis Surgical History History of bladder surgery Lifted History of hysterectomy GALO. 2018 History of cholecystectomy 2001 Family History Father Dementia Cancer SQUAMOUS CELL CARCINOMA Mother Dementia Social History Smoking and tobacco/nicotine status: never used tobacco/nicotine Alcohol intake: never Substance/Drug Use: never Marital status: Current occupational status: retired Data Anesthesia 04/18/24 06:20 04/18/24 06:20 Short CBC 04/18/24 Range/Units 06:20 WBC 7.26 (3.29-11.43) 10^3/uL Hgb 15.10 (11.27-16.99) g/dL Hct 45.8 (36-47) % MCV 89.5 (85-98) fl Plt Count 275 (157-399) 10^3/cmm Neut % (Auto) 57.2 % Neut # (Auto) 4.15 (1.8-7.7) 10^3/uL BMP 04/18/24 06:20 Sodium 141 Potassium 3.8 Chloride 103 Carbon Dioxide 28 BUN 18 Creatinine 0.4 L Glucose 94 Calcium 10.9 H Cardiac Studies: 2 Cardiac Event Monitor 12/11/22
--- NOTE | 2024-04-18 07:09 | ANES.PROC ---
Anesthesia Procedures Procedure/Date: 04/18/24 Nerve Block ^: Nerve Block 1: Main Anesthesia: spinal anesthesia block Time Out Performed: Yes Consent: requested by attending/covering physician, from patient, from other, risks and benefits reviewed and patient agrees to proceed Nerve block location: adductor canal (R) Anesthesia monitors applied: pulse oximetry, EKG, BP cuff and oxygen Nerve block position: supine Anesthetic Used: ropivicaine 0.5% (30 ml) and with decadron (4 mg) Ultrasound used to: recognize landmarks and visualize and ID femerol nerve Nerve Stimulator Used?: No Interscalene/Femoral BLK: 4 stimuplex 21 g needle used for position and inplane approach, visualize local anesthetic spread and no vascular puncture identified Injection: neg aspiration of heme Patient Tolerated Procedure: well Complications: none
[2024-04-18] MEDS: ceFAZolin 2,000 mg SDV 2000 MG IVP ×3 (07:10→23:00)
[2024-04-18] MEDS: tranexamic acid 1,000 mg/10mL SDV 1000 MG IV (07:50)
[2024-04-18] MEDS: ROPivacaine 0.2% Premix 100 mL 200 MG INTRA-ARTI (08:36)
[2024-04-18] MEDS: ketorolac 30 mg/mL INJ XX (08:36)
[2024-04-18] MEDS: tranexamic acid 1,000 mg/10mL SDV 1000 MG XX (08:36)
[2024-04-18] MEDS: EPINEPHrine 1 mg/mL INJ XX (08:36)
--- NOTE | 2024-04-18 09:13 | PM.OP ---
Operative Report Date of procedure: April 18, 2024 Surgeon: Anthony Orlando DO Paper Spooler: Jose Orlando PA-C: PA was necessary for assistance in this case with leg positioning retraction and protection of neurovascular structures as well as assistance in implantation wound closure and dressing application. Procedure: Preoperative diagnosis: Right knee degenerative joint disease Post-op diagnosis: Same Procedure done: Right total knee arthroplasty, cemented?robotic assisted Rex Implants: Ziggy triathlon size 4 femur CR cemented Right [place] triathlon size? 4 tibia universal baseplate cemented Ziggy triathlon symmetric patella size 33 mm [place] triathlon polyethylene 11mm Surgeon: Anthony Orlando DO Estimated blood loss: 20 mL Tourniquet 63 minutes IV fluids: 1500 mL Urine output: 700 mL Complications: None Condition: stable Disposition: floor Brief History: Patient is a 64-year-old female with with chronic Right knee degenerative joint disease.? Patient has been worked up in the outpatient setting in the orthopedic office at this point time through shared decision making given? [id number] arthritis as well as failed conservative treatment, and pt would like to proceed with a Right total knee arthroplasty.? Through shared decision making elected to proceed with surgical intervention for Right total knee arthroplasty.? We talked about continued conservative treatment and surgical intervention as far as the risk benefits complications alternatives surgical and nonsurgical treatment options.? At this point time understanding patient risks with surgery patient agrees to proceed with surgical intervention.? Once again? risk with surgery include but are not limited to make it better make it worse blood clot, heart attack, stroke, on the table, infection, injury to nerves or vessels, persistent pain, arthrofibrosis, implant failure.? Understanding these risks patient agrees to proceed with surgical intervention consent was obtained in the office.? All questions answered. Procedure: Patient was seen and evaluated in the preoperative holding area.? Consent was reviewed and signed with patient with plan for Right total knee arthroplasty.? All questions answered.? Correct extremity marked.? Patient seen and evaluated by the anesthesia department and once cleared for surgery was taken back to the operative suite.? Patient was placed into a supine position on the OR table.? All bony prominences were well-padded.? Patient was appropriately secured to the bed.? Patient underwent anesthesia per the anesthesia department.? Patient received spinal anesthesia and? Conner catheter was placed.? A nonsterile tourniquet was applied to the Right thigh.? At this point in time a final timeout performed.? Patient received appropriate preoperative antibiotics and TXA. Next the Right lower extremity was then prepped and draped in standard orthopedic fashion. Esmarch tourniquet was used exsanguinate the Right lower extremity.? Tourniquet was insufflated to 250 mmHg. A standard anterior incision was made over midline of the knee.? Sharp scalpel excision through skin and subcutaneous tissue full-thickness skin flaps were made.? Fascia was elevated off of the extensor retinaculum was stable with medial parapatellar arthrotomy was then made.? The performed standard sequential releases..? Immediately on entry into the joint patient was found to have severe eburnated bone and tricompartmental arthritic changes noted.? With significant osteophyte formation.? Next the the patella was then stuffed and the knee was then flexed.?? Ghazal was placed superiorly around the anterior aspect of the femur this was freed of synovium and I subsequently then placed by 2 femur pins to establish my femur arrays for the Rex robot.? These were then placed bicortically and? femur array was then appropriately secured with appropriate visualization.? Next attention was turned towards the tibial rays.? These were then drilled sequentially bicortically in parallel fashion and intraincisional.? I then placed my guide as well as my tibial array on in place.? This was appropriately secured and had excellent visualization with the Rex robot.? Next the tibial checkpoint as well as femur checkpoint were then placed.? At this point time I then subsequently established my head center as well as my medial lateral malleoli as well as my checkpoints.? Next utilizing standard Rex technology I then mapped out the appropriate points and confirmation points around the femur as well as the tibia in standard fashion.? Once this was then done I then removed all osteophytes in preparation for dynamic testing.? All osteophytes were removed as well as I removed the ACL and the PCL was excised due to its significant tearing and degeneration noted.? At this point time the knee was brought into full extension and we performed our standard evaluation of our gap balancing stressing his ligaments and extension as well as flexion appropriate adjustments were made to have appropriate gap balancing in both flexion and extension.? This plan for final cuts. Patient's [place] deformity was 2 degrees valgus and slight hyperextension. We made appropriate adjustments with her implant to correct the deformity..? We get a preoperative plan evaluating our implants which was a size 4 femur and a size 4 tibia.? Next we brought in the Rex robot and sequentially made our femur cuts.? All excess bony cuts were then removed.? Finally we made our tibial cut.? Once this was done a standard PCL retractor was then placed into this position I excised the medial and lateral meniscus.? The tibial cut was then subsequently removed all excess bony debris was removed.? I then utilized a lamina cephalometric technician and remove the posterior osteophytes.? At this point time sized the tibia and confirmed this was a size 4.? I utilized our blunt probe to establish rotation of tibial implant.? Once this was done I then placed my tibia size 4 trial in appropriate position and then subsequently placed tibial pins to hold this into place placed a size 11 mm poly as well as a size 4 femur which was appropriately impacted in place knee was then subsequently brought into extension. Trials were then assessed,? this was stable with varus valgus stress in extension as well as had symmetrical translation when brought into flexion demonstrating symmetrical gaps. I had excellent balance gaps in flexion and extension with varus and valgus stresses.? At this point I was satisfied with these implants these were then verified and opened on the back table size 4 tibia, size 4 femur,? size 11 mm polythickness.? We did confirm appropriate gap balancing and stresses as well as alignment utilizing? Miaopai and were satisfied with this plan.? ?At this point time with my trials in place I then towel clip the patella everted this made appropriate measurements subsequently utilizing freehand technique performed by patellar resurfacing this was confirmed to be appropriate resection and subsequently sized to be a 33 mm symmetric.? My drill peg guides were then clamped and appropriate position and appropriate position in the patella for appropriate tracking and parallel with the joint.? Pegs were drilled trial implant was placed and the knee was then subsequently ranged and found to have excellent patellar tracking.? Femur pegs were then drilled.? All checkpoints as well as guidepins and arrays were removed and appropriate counts made.? Satisfied with our tibial placement rotation I then utilized the keel punch and prepped the tibia.? At this point time all of our trial implants were removed.? The wound bed? was thoroughly irrigated and dried and prepped for cementation.? Cement was mixed on the back table.? Once cement was ready this was then covered onto the tibia and the tibial baseplate was then impacted and all excess cement was removed.? Next the polyethylene was then impacted into place on the tibial baseplate.? Next cement was placed onto the femur as well as under the femur implants and impacted in to place and all excess cement was extruded and removed.? Knee was taken into full extension? to clear all excess cement was removed.? Warm saline was placed over the joint.? I then towel clip patella and dried for cementation. cemented the patella into place.? This was all clamped and the cement was allowed to cure.? Thorough irrigation performed with pulse lavage.? I then placed my periarticular injection while the cement was curing.? Once cured the knee was taken through range of motion and had excellent stability and gaps were balanced in flexion and extension.? Tourniquet was then deflated. hemostasis satisfactory with electrocautery.? Next I then subsequently closed the capsule with Ethibond suture as well as a running strata fix suture.? Knee was then taken through range of motion 30 times.? Next the skin was then closed in layered fashion of running stratifix sutures of deep and subcutenous tissue and skin.? ?closed in flexion and Prineo glue was then placed over the incision this allowed to cure.? Incision was covered with Silverlon, with ABDs soft roll and Leonardo wrap.? Patient was then awakened from anesthesia and taken to PACU in stable condition. Disposition: Patient taken to PACU in stable condition will be admitted to the floor for pain control PT/OT weight-bear as tolerated Right lower extremity dressing changes as needed, DVT prophylaxis. Pain control. Patient will receive appropriate postoperative antibiotics. patient will be seen today by the internal medicine team for medical management.? Patient will follow up with the office in 2 weeks.? Patient understands agrees with current plan.? All questions answered.
--- NOTE | 2024-04-18 09:22 | XR_ITS ---
WS: [id number] Exam: XR knee RT 1-2V 21128 Date/Time of Exam: 04/18/2024 9:47 AM Reason For Exam: s/p R TKA RIGHT total knee arthroplasty is in satisfactory position. Postoperative changes in the adjacent soft tissues. XR/XR knee RT 1-2V 24514 IMPRESSION: 1. RIGHT total knee replacement in excellent position.
--- NOTE | 2024-04-18 09:37 | W.PM.BPON ---
Date of Procedure: [April 18, 2024] Surgeon: [Dr. Orlando DO] Quality Control Assessor(s): [Joes Orlando PA-C] Procedure(s) performed: [Right total knee arthroplasty with Rex robotic assist] Findings of the procedure(s): [Right knee degenerative joint disease. Procedure went well and as planned.] Estimated blood loss: [20 mL] Specimen(s) removed: [N/A] Post-operative diagnosis: [Right knee degenerative joint disease]
--- NOTE | 2024-04-18 09:38 | PM.PACU ---
PACU note Narrative: Patient is a 64-year-old female just underwent a right total knee arthroplasty. Pt transferred to PACU in stable condition. Dressing is dry. pt is awake and alert. Compartments are soft and compressible. Distal pulses are palpable toes are warm and well-perfused. Cap refill is normal and under 2 seconds. Unable to further assess sensation or motor to right leg due to residual spinal block. pain is controlled. Exam: awake Disposition: admitted
[2024-04-18] MEDS: fentaNYL 50 mcg/mL INJ 2mL IVP (09:45)
[2024-04-18] MEDS: ondansetron 2 mg/ML SDV 2 mL 4 MG IVP ×2 (10:24→16:32)
--- NOTE | 2024-04-18 10:30 | ANE.PACU2 ---
Inpatient post-anesthesia follow up: Airway intact: Yes Vital signs: Temperature 97.8 F Pulse Rate 73 Respiratory Rate 16 Blood Pressure 126/76 Pulse Oximetry 98 Oxygen Delivery Me thod Room Air Oxygen Flow Rate Fraction of Inspir ed Oxygen Hydration adequate: Yes Nausea and vomiting: No Pain level: 1 Mental status: Baseline
[2024-04-18] MEDS: oxyCODONE 5 mg IR Tab/Cap PO ×2 (11:38→16:18)
[2024-04-18] MEDS: lactated ringers 1,000 ML 75 ML IV (11:39)
[2024-04-18] MEDS: chlorhexidine gluconate 0.12% Btl 473 mL 30 ML MUCOUS MEM ×3 (13:34→21:02)
[2024-04-18] MEDS: tranexamic acid 1,000 MG/100 ML PREMIX 600 MG IV (16:17)
[2024-04-18] MEDS: iron polysaccharide complex 150 mg Capsule PO (16:18)
[2024-04-18] MEDS: calcium carb-vit d 600mg/400unit 1 Tablet 1 EACH PO (16:18)
[2024-04-18] MEDS: mupirocin oint 22 gm 1 APPLIC NASAL (16:18)
[2024-04-18] MEDS: docusate sodium 100 mg Capsule PO (16:19)
--- NOTE | 2024-04-18 17:19 | P.CONIM_ITS ---
Providers/Reason For Consult 2 Consulting Physician/Specialty*: Orthopedic service Reason for Consult*: Medical management Attending Physician: Anthony Orlando DO Primary Care Provider: Meredith Hardy MD History of Present Illness History of Present Illness Gill Parry is a 64 year old female with a past medical history of chronic back pain, hypertension, who presents [facility] for a right total knee arthroplasty, currently patient is alert oriented x 3, following all commands, she did have episode of vomiting recently, but she is feeling better now no abdominal pain, no chest pain, no palpitations, no shortness of breath Review of Systems 2 Card: Denies: chest pain Resp: Denies: dyspnea GI: Denies: abdominal pain Medications/Allergies Home Medications Medication Instructions Recorded Confirmed Last Taken Type docusate sodium 100 mg capsule 100 mg PO BID 06/26/21 04/14/24 04/17/24 History (Stool Softener) magnesium citrate 125 mg capsule 250 mg PO BID 01/23/23 04/14/24 04/17/24 History cyanocobalamin (vitamin B-12) 1,000 mcg sublingual DAILY 07/28/23 04/14/24 04/17/24 History 1,000 mcg sublingual tablet meloxicam 15 mg tablet 15 mg PO DAILY 1 month #30 tabs 02/17/24 04/14/24 04/17/24 Rx atorvastatin 20 mg tablet 20 mg PO DAILY 04/14/24 04/14/24 04/17/24 History clonidine HCl 0.1 mg tablet 0.05 mg PO DAILY hot flashes 04/14/24 04/14/24 04/17/24 History pantoprazole 40 mg tablet,delayed 40 mg PO DAILY 04/14/24 04/14/24 04/17/24 History release Allergies Allergy/AdvReac Type Severity Reaction Status Date / Time sulfamethoxazole Allergy Mild STOMACH Verified 04/14/24 08:46 [From Bactrim] ACHE trimethoprim [From Bactrim] Allergy Mild STOMACH Verified 04/14/24 08:46 ACHE gabapentin Allergy dizziness Verified 04/14/24 08:46 hydromorphone [From Dilaudid] Allergy ADR-Dizzine Verified 04/14/24 08:46 ss venlafaxine AdvReac sweating, Verified 04/14/24 08:46 elevated BP Current Medications Generic Name Dose Route Start Last Admin Trade Name Freq PRN Reason Stop Dose Admin Calcium Carbonate 1 each 04/18/24 18:00 04/18/24 16:18 Calcium Carb-Vit D 600mg/400unit 1 Tablet PO 1 each BID JEN Administration Cefazolin Sodium 2,000 mg 04/18/24 15:00 04/18/24 16:17 Cefazolin 2,000 Mg Sdv IVP 04/19/24 07:01 2,000 mg Q8H JEN Administration Chlorhexidine Gluconate 30 ml 04/18/24 13:00 04/18/24 16:17 Chlorhexidine Gluconate 0.12% Btl 473 Ml MUCOUS MEM 30 ml QID JEN Administration Docusate Sodium 100 mg 04/18/24 18:00 04/18/24 16:19 Docusate Sodium 100 Mg Capsule PO 100 mg BID JEN Administration Lactated Ringer's 1,000 mls @ 75 mls/hr 04/18/24 10:56 04/18/24 11:39 Lactated Ringers IV 75 mls/hr .[id number] JEN Administration Acetaminophen 1,000 mg in 100 mls @ 400 mls/hr 04/18/24 14:30 04/18/24 14:20 Acetaminophen IV 04/19/24 06:44 Infused Q8H JEN Infusion Mupirocin 1 applic 04/18/24 18:00 04/18/24 16:18 Mupirocin Oint 22 Gm NASAL 04/23/24 17:59 1 applic BID JEN Administration Protocol Ondansetron HCl 4 mg 04/18/24 10:56 04/18/24 16:32 Ondansetron 2 Mg/Ml Sdv 2 Ml IVP 4 mg Q6H PRN Administration NAUSEA AND VOMITING Oxycodone HCl 5 mg 04/18/24 10:56 04/18/24 16:18 Oxycodone 5 Mg Ir Tab/Cap PO 5 mg Q4H PRN Administration MODERATE PAIN Polysaccharide Iron Complex 150 mg 04/18/24 18:00 04/18/24 16:18 Iron Polysaccharide Complex 150 Mg Capsule PO 150 mg BIDWM JEN Administration PFSH Acute 2 PFSH: Medical History Elevated blood pressure reading in office without diagnosis of hypertension Right knee DJD Rectal prolapse surgery 2019 Chronic low back pain History of cervical fracture History of fracture of right ankle Urolithiasis Surgical History History of bladder surgery Lifted History of hysterectomy GALO. 2018 History of cholecystectomy 2001 Family History Father Dementia Cancer SQUAMOUS CELL CARCINOMA Mother Dementia Social History Smoking and tobacco/nicotine status: never used tobacco/nicotine Alcohol intake: never Substance/Drug Use: never Marital status: Current occupational status: retired Vitals/I&O/Wt Last Vital Signs Temp 97.8 F 04/18/24 16:06 Pulse 77 04/18/24 16:06 Resp 18 04/18/24 16:06 BP 106/63 04/18/24 16:06 Pulse Ox 93 04/18/24 16:06 O2 Del Method Room Air 04/18/24 16:06 04/18/24 04/18/24 04/18/24 06:59 14:59 22:59 Intake Total 2200 / 2200 100 / 2300 Output Total 1120 / 1120 950 / 2070 Balance 1080 / 1080 -850 / 230 Weight last 48 hrs Weight 73.936 kg Weight 73.936 kg Physical Exam 2 Const: COMMON NORMALS: no acute distress and patient oriented x3 Resp: COMMON NORMALS: normal respiratory effort, No retractions, No use of accessory muscles and clear to auscultation bilaterally AUSCULTATION: clear to auscultation bilaterally Cardio: COMMON NORMALS: regular rate, regular rhythm, S1 normal heart sound present and S2 normal heart sound present RATE: regular rate RHYTHM: r egular rhythm HEART SOUNDS: S1 normal heart sound present and S2 normal heart sound present GI: COMMON NORMALS: Normal to inspection, nondistended, normoactive bowel sounds present and non-tender Extremity: COMMON NORMALS: no pedal edema Neuro: COMMON NORMALS: patient oriented x3 Psych: COMMON NORMALS: mental status grossly normal Urinary Catheter Management: Conner: Cath Placed During This Visit: yes Urinary Catheter Date of Insertion: 04/18/24 Urinary Catheter Time of Insertion: 07:35 Data 04/18/24 06:20 04/18/24 06:20 A&P Assessment and plan (1) S/P total knee arthroplasty: (2) GERD (gastroesophageal reflux disease): Qualifiers: Esophagitis presence: without esophagitis Qualified Code(s): K21.9 - Gastro-esophageal reflux disease without esophagitis (3) Elevated blood pressure reading in office without diagnosis of hypertension: Plan Right knee total arthroplasty -Pain control and anticoagulant therapy as per orthopedic team -PT OT Hypertension, continue clonidine she takes it at bedtime Consult Attestations 2 Medical Necessity Statement: Patient requires hospitalization for right knee total arthroplasty, outpatient with observation Diagnoses S/P total knee arthroplasty Z96.659 Gastroesophageal reflux disease without esophagitis K21.9 Esophagitis presence: without esophagitis Elevated blood pressure reading in office without diagnosis of hypertension R03.0
[2024-04-19 00:11] VITALS: BP 91/57; PULSE 71; RESP 16; TEMP 36.8; O2SAT 96
[2024-04-19] MEDS: lactated ringers 1,000 ML 75 ML IV (01:49)
[2024-04-19 04:06] VITALS: BP 100/61; PULSE 59; RESP 17; TEMP 36.8; O2SAT 95
[2024-04-19 04:07] LABS: Basophils % 0.3 %; Eosinophils % 0.2 %; Hematocrit 32.4 % (36-47); Lymphocytes # 2.4 10^3/uL (0.8-4.8); Lymphocytes % 23.1 %; Mean Corpuscular HGB Conc 33.3 g/dL (30-55); Mean Corpuscular Hemoglobin 30.9 pg (27-33); Mean Corpuscular Volume 92.8 fl (85-98); Mean Platelet Volume 9.8 fL (7.4-10.4); Monocytes # 0.7 10^3/uL (0.2-0.9); Monocytes % 6.5 %; Neutrophils # 7.38 10^3/uL (1.8-7.7); Neutrophils % 69.7 %; Nucleated Red Blood Cells % 0 %; Platelet Count 179 10^3/cmm (157-399); Red Blood Count 3.49 10^6/uL (3.85-5.65); Red Cell Distribution Width 12.8 % (12.1-15.1); White Blood Count 10.58 10^3/uL (3.29-11.43)
[2024-04-19 04:27] LABS: Anion Gap 9.4 (5-19); Blood Urea Nitrogen 8 mg/dL (8-23); Calcium 8.6 mg/dL (8.5-10.5); Carbon Dioxide 26 mmol/L (22-29); Chloride 108 mmol/L (98-107); Creatinine Clr Calc Pharmacy 73.2296; Glomerular Filtration Rate 159.7 mL/min (90-130); Glucose 97 mg/dL (65-115); Osmolality Calculated 286 mOsm/kg (285-295); Potassium 4.4 mmol/L (3.5-5.1); Sodium 139 mmol/L (136-145)
[2024-04-19] MEDS: acetaminophen 1,000 MG/100 ML PIGGYBACK 400 MG IV (06:13)
[2024-04-19] MEDS: ceFAZolin 2,000 mg SDV 2000 MG IVP (06:13)
[2024-04-19 07:29] VITALS: BP 103/67; PULSE 62; RESP 16; TEMP 36.6; O2SAT 93
[2024-04-19] MEDS: acetaminophen 325 mg Tablet 650 MG PO (08:31)
--- NOTE | 2024-04-19 08:45 | PC.NURSE ---
All morning medications refused, states she will take them at home. Pt verbalizes fear of becoming nauseous. She requests only tylenol for pain control.
--- NOTE | 2024-04-19 09:48 | PC.CHAP ---
Pastoral Care Encounter/Spiritual Assessment Type of Contact [] Declined tractor operator laser leveling visit [] Patient/Family/Request visit [] Outpatient visit [] Follow-up visit [] Physician referral [] Code/Alert [x] Routine visit [] Staff referral [] Actively dying [] Patient sleeping [] Family support [] [] Out of room [] Palliative care [] [] Receiving care in room [] Pre-surgical visit [] Trauma [] Long length of stay [] ICU visit [] Other: Relational/Emotional Strength [x] Patient feels connected with others/family/visitors/staff [] Distress [] Loneliness/isolation [] Abandonment Spirituality of Patient [x] Person of Jailene [] Attends Congregational of their [place] [x] Believes in Prayer [] Reads Bible or Sikh materials [] There are Spiritual issues to be addressed Incoming Freight Clerk Interventions [x] Prayer [] Active listening [] Non-anxious presence [x] Spiritual/emotional support [] Crisis/trauma care [] Spiritual counseling [] Bereavement support [] Provided bereavement packet [] Provided Bible/devotional materials [] Provided toy/stuffed animal, coloring book to patient or family member [] Provided Communion [] Anointing/[place] [] Salvation [x] Completed spiritual assessment [] Other: Impact on Illness or Injury [] Angry [] Fearful [] Anxious [] Often cries [] Exhaustion [] Unable to work [] Unable to attend pentecostal [] Unable to walk/stand [] Unable to read [] Unable to drive [] Unable to eat/drink [] Unable to sleep [] Unable to be with family [] Patient intubated [] Other: Summary Time spent with patient 5 min
[2024-04-19 11:15] VITALS: BP 104/64; PULSE 66; RESP 16; TEMP 36.6; O2SAT 95
--- NOTE | 2024-04-19 12:01 | P.PN_ITS ---
Subjective 2 Subjective: Patient was seen this morning, denies any chest pain, no shortness of breath, no fevers, no chills, she plans on going home today Vitals/I&O/Wt Last Vital Signs Temp 97.8 F 04/19/24 11:15 Pulse 66 04/19/24 11:15 Resp 16 04/19/24 11:15 BP 104/64 04/19/24 11:15 Pulse Ox 95 04/19/24 11:15 O2 Del Method Room Air 04/19/24 11:15 04/18/24 04/19/24 04/19/24 22:59 06:59 14:59 Intake Total 680 / 2880 1220 / 4100 480 / 480 Output Total 950 / 2070 Balance -270 / 810 1220 / 2030 480 / 480 Weight last 48 hrs Weight 78.698 kg Weight 73.936 kg Weight 73.936 kg Physical Exam 2 Const: COMMON NORMALS: no acute distress and patient oriented x3 Resp: COMMON NORMALS: normal respiratory effort, No retractions, No use of accessory muscles and clear to auscultation bilaterally AUSCULTATION: clear to auscultation bilaterally Cardio: COMMON NORMALS: regular rate, regular rhythm, S1 normal heart sound present and S2 normal heart sound present RATE: regular rate RHYTHM: r egular rhythm HEART SOUNDS: S1 normal heart sound present and S2 normal heart sound present GI: COMMON NORMALS: Normal to inspection, nondistended, normoactive bowel sounds present and non-tender Extremity: COMMON NORMALS: no pedal edema NARRATIVE EXTREMITY EXAM: Right knee wrapped Neuro: COMMON NORMALS: patient oriented x3 Psych: COMMON NORMALS: mental status grossly normal Urinary Catheter Management: Conner: Cath Placed During This Visit: yes, but has since been removed by the nurse Reason for Continuing Indwelling Catheter: Decision to DC Catheter Urinary Catheter Date of Insertion: 04/18/24 Urinary Catheter Time of Insertion: 07:35 Date Urinary Catheter Removed: 04/18/24 Time Urinary Catheter Discontinued: 18:00 Data 04/19/24 03:31 04/19/24 03:31 A&P Assessment and plan (1) S/P total knee arthroplasty: (2) GERD (gastroesophageal reflux disease): Qualifiers: Esophagitis presence: without esophagitis Qualified Code(s): K21.9 - Gastro-esophageal reflux disease without esophagitis (3) Elevated blood pressure reading in office without diagnosis of hypertension: Plan Right knee total arthroplasty -Pain control and anticoagulant therapy as per orthopedic team -PT OT Hypertension, continue clonidine she takes it at bedtime Attestations 2 Medical Necessity Statement*: Patient will be discharged today Diagnoses S/P total knee arthroplasty Z96.659 Gastroesophageal reflux disease without esophagitis K21.9 Esophagitis presence: without esophagitis Elevated blood pressure reading in office without diagnosis of hypertension R03.0
--- NOTE | 2024-04-19 12:03 | P.DS_ITS ---
Discharge Providers Date of Admission: 04/18/24 10:02 Date of Discharge: April 19, 2024 Attending Provider at Admission: Anthony Orlando DO Attending Provider at Discharge: Anthony Orlando DO Consults: Dr. Haley?hospitalist Primary Care Provider: Meredith Hardy MD Diagnoses at Discharge Discharge Diagnosis (1) S/P total knee arthroplasty: Status: Acute (2) GERD (gastroesophageal reflux disease): Status: Acute Qualifiers: Esophagitis presence: without esophagitis Qualified Code(s): K21.9 - Gastro-esophageal reflux disease without esophagitis (3) Elevated blood pressure reading in office without diagnosis of hypertension: Status: Acute Reason for Visit Reason for Visit: M17.11 Brief History: Status post right TKA Hospital Course Hospital Course Patient presented to the preoperative holding area with plan for right total knee arthroplasty after patient has been worked up in the outpatient setting for failed conservative treatment of right knee degenerative joint disease. Once cleared by anesthesia for surgery patient subsequently was taken back to the operative suite underwent anesthesia per anesthesia department and then subsequently underwent a right total knee arthroplasty. Procedure was performed without any complications patient was taken to PACU in stable condition patient recovered well in PACU and then was admitted to the floor postoperatively internal medicine was consulted and on board for medical management and assistance with care. Patient received appropriate PT/OT, postoperative an tibiotics, postoperative TXA, pain control, postoperative DVT prophylaxis. Elevation and ice. Patient encouraged for knee range of motion allowed weightbearing as tolerated to the operative lower extremity. Dressing was changed as needed, labs were monitored daily. Patient recovered well postoperatively and worked well and progressed well with therapy. It was determined on postoperative day 1 the patient was stable for discharge from an orthopedic standpoint and medicine. Patient was comfortable with discharge and plan was discharged home. Patient received appropriate discharge instructions as well as pain medication and DVT prophylaxis postoperatively. Given appropriate instructions for dressing management. Patient will follow-up with Dr. Orlando/orthopedics in the office in 2 weeks. All questions answered. Understand if there is any issues questions or concerns and contact the office. Physical Exam Narrative: Right knee examination demonstrates dressings on in place are clean dry and intact compartments are soft compressible normal postoperative swelling and tenderness palpation about the right knee. Patient's calf soft nontender. Patient is able to wiggle the toes plantarflex and dorsiflex ankle, sensations intact light touch distally distal pulses are palpable Urinary Catheter Management: Conner: Cath Placed During This Visit: yes, but has since been removed by the nurse Reason for Continuing Indwelling Catheter: Decision to DC Catheter Urinary Catheter Date of Insertion: 04/18/24 Urinary Catheter Time of Insertion: 07:35 Date Urinary Catheter Removed: 04/18/24 Time Urinary Catheter Discontinued: 18:00 Discharge Data Studies Completed and Pending Completed Studies During Hospitalization Category Date Time Status XR knee RT 1-2V [id number] Routine Exams 04/18/24 09:22 Completed Pending at discharge Category Date Time Status Basic Metabolic Panel AM LABS Lab 04/20/24 04:00 Ordered Basic Metabolic Panel AM LABS Lab 04/21/24 04:00 Ordered Complete Blood Count w/Auto AM LABS Lab 04/20/24 04:00 Ordered Complete Blood Count w/Auto AM LABS Lab 04/21/24 04:00 Ordered Radiology Impressions Knee X-Ray 04/18/24 09:22 IMPRESSION: 1. RIGHT total knee replacement in excellent position. Laboratory Results WBC 10.58 10^3/uL (3.29-11.43) 04/19/24 03:31 RBC 3.49 10^6/uL (3.85-5.65) L 04/19/24 03:31 Hgb 10.80 g/dL (11.27-16.99) L 04/19/24 03:31 Hct 32.4 % (36-47) L 04/19/24 03:31 MCV 92.8 fl (85-98) 04/19/24 03:31 MCH 30.9 pg (27-33) 04/19/24 03:31 MCHC 33.3 g/dL (30-55) 04/19/24 03:31 RDW 12.8 % (12.1-15.1) 04/19/24 03:31 Plt Count 179 10^3/cmm (157-399) D 04/19/24 03:31 MPV 9.8 fL (7.4-10.4) 04/19/24 03:31 Neut % (Auto) 69.7 % 04/19/24 03:31 Lymph % (Auto) 23.1 % 04/19/24 03:31 [place] % (Auto) 6.5 % 04/19/24 03:31 Eos % (Auto) 0.2 % 04/19/24 03:31 Baso % (Auto) 0.3 % 04/19/24 03:31 Neut # (Auto) 7.38 10^3/uL (1.8-7.7) 04/19/24 03:31 Lymph # (Auto) 2.4 10^3/uL (0.8-4.8) 04/19/24 03:31 [place] # (Auto) 0.7 10^3/uL (0.2-0.9) 04/19/24 03:31 Eos # (Auto) 0.0 10^3/uL (0.0-0.8) 04/19/24 03:31 Baso # (Auto) 0.0 10^3/uL (0.0-0.1) 04/19/24 03:31 Nucleated RBC % (auto) 0 % 04/19/24 03:31 Nucleated RBCs # 0.0 /100WBC 04/19/24 03:31 Sodium 139 mmol/L (136-145) 04/19/24 03:31 Potassium 4.4 mmol/L (3.5-5.1) 04/19/24 03:31 Chloride 108 mmol/L (98-107) H 04/19/24 03:31 Carbon Dioxide 26 mmol/L (22-29) 04/19/24 03:31 Anion Gap 9.4 (5-19) 04/19/24 03:31 BUN 8 mg/dL (8-23) 04/19/24 03:31 Creatinine 0.4 mg/dL (0.5-0.9) L 04/19/24 03:31 GFR Calculation 159.7 mL/min (90-130) H 04/19/24 03:31 Glucose 97 mg/dL (65-115) 04/19/24 03:31 Calculated Osmolality 286 mOsm/kg (285-295) 04/19/24 03:31 Calcium 8.6 mg/dL (8.5-10.5) 04/19/24 03:31 Blood Type B Negative 04/18/24 06:20 Rho(D) Type Rh negative 04/18/24 06:20 Antibody Screen Negative 04/18/24 06:20 Vitals Last Vital Signs Temp 97.8 F 04/19/24 11:15 Pulse 66 04/19/24 11:15 Resp 16 04/19/24 11:15 BP 104/64 04/19/24 11:15 Pulse Ox 95 04/19/24 11:15 O2 Del Method Room Air 04/19/24 11:15 Discharge Plan Discharge Patient Disposition: Home Condition: Stable Prescriptions: New Eliquis 2.5 mg tablet 2.5 mg PO BID 14 Days Qty: 28 0RF acetaminophen [Tylenol Extra Strength] 500 mg tablet 1,000 mg PO .q8 14 Days Qty: 84 0RF Continued docusate sodium [Stool Softener] 100 mg capsule 100 mg PO BID magnesium citrate 125 mg capsule 250 mg PO BID cyanocobalamin (vitamin B-12) 1,000 mcg Tablet, Sublingual 1,000 mcg SUBLINGUAL DAILY clonidine HCl 0.1 mg tablet 0.05 mg PO DAILY atorvastatin 20 mg tablet 20 mg PO DAILY Rx Instructions: Take 1 tablet by mouth once daily pantoprazole 40 mg tablet,delayed release (DR/EC) 40 mg PO DAILY Rx Instructions: TAKE 1 TABLET BY MOUTH IN THE MORNING Held meloxicam 15 mg tablet 15 mg PO DAILY 30 Days Qty: 30 3RF Hold Instructions: Resume on 05/03/24. Discharge Orders: Discharge Order (Routine); Ordered 04/19/24 Ordered By: Anthony Orlando Other Ambulatory Orders: Physical Therapy Eval and Treat Outpatient (Order) Timeframe: 3 Days Facility: [facility] - Location: Physical Therapy Ordered By: Anthony Orlando Referrals: Meredith Hardy MD [Primary Care Provider] - (We have notified your physician's clinic of the need for a follow-up appointment to be scheduled. If you have not heard from them within the next 2 business days, please call them directly. ) Jose Orlando PA [Physician [employer]er Manufacturer] - 05/03/24 9:15 am Discharge Diet: Regular Discharge Activity: Limit activity as instructed and Use walker/crutches as instructed Patient Instructions: Apixaban (By mouth), Acute Wound Care (DC), Total Knee Replacement (GEN), Opioid Safety, Post Anesthesia Care Activity Restrictions/Additional Instructions: Orthopedic discharge instructions: Keep incisions clean dry and intact, leave [place] bandage dressings on in place for 7 days after that may rinse incisions with warm soapy water pat dry and redress with a dry dressing. Patient may weight-bear as tolerate to the operative extremity Utilize walker as needed Encourage knee range of motion Ice and elevate as needed for pain and swelling Take pain medication as prescribed (do not take more than 3000 mg Tylenol in a day) Take antinausea medication as needed Pain medication can cause constipation. take [id number] stool softeners and or MiraLAX. Take prescribed Eliquis twice daily for the next 14 days for blood clot prevention May supplement for pain with ibuprofen [id number] as needed No baths or soaks Follow-up in the orthopedic office in 2 weeks Contact the office for any questions or concerns Discharge Attestations Time Spent in Discharge Care*: less than 30 min Quality Metrics Clinical Quality Measures [ No reported AMI, CVA or VTE this stay] Coding Level of Care Code Acute Code for Chg Fwd Diagnoses S/P total knee arthroplasty Z96.659 Gastroesophageal reflux disease without esophagitis K21.9 Esophagitis presence: without esophagitis Elevated blood pressure reading in office without diagnosis of hypertension R03.0
[2024-04-19 13:30] VITALS: BP 104/64; PULSE 66; RESP 66; TEMP 36.6; O2SAT 95
== END 2024-04-19 13:31 | disposition home or self-care (01) ==
LOC: MEDSURG 10:03
PROVIDERS: Physician Assistant; Admitting Provider Student in an Organized Health Care Education/Training Program; PCP Family Medicine; Visit Provider Student in an Organized Health Care Education/Training Program
PROC: 8E0Y0CZ Robotic Assisted Procedure of Lower Extremity, Open Approach (ICD-10-PCS; CPT 27447; principal; 2024-04-18 07:00)
DX: M17.11 Unilateral primary osteoarthritis, right knee (principal); K21.9 Gastro-esophageal reflux disease without esophagitis; I10 Essential (primary) hypertension; E78.5 Hyperlipidemia, unspecified
CPT/HCPCS: 27447; 20985; 36415; 51702; 73560; 80048; 85025; 86850; 86900; 97110; 97116; 97161; 97165; C1713; C1776; G0378; J0131; J0171; J0690; J1100; J1885; J2250; J2371; J2405; J2704; J2795; J3010; J7030; J7120

== ENCOUNTER 2024-04-22 09:10 | Outpatient (RCR) | payer OTHER, SELFPAY | END 2024-04-30 23:59 | disposition home or self-care (01) | LOC: SPT 09:10 | PROVIDERS: Visit Provider Student in an Organized Health Care Education/Training Program | DX: Z47.1 Aftercare following joint replacement surgery (principal); Z96.651 Presence of right artificial knee joint | CPT/HCPCS: 97110; 97161 ==

== ENCOUNTER 2024-05-01 06:00 | Outpatient (RCR) | payer OTHER, SELFPAY | END 2024-05-31 23:59 | disposition home or self-care (01) | LOC: SPT 06:00 | PROVIDERS: Visit Provider Student in an Organized Health Care Education/Training Program | DX: Z47.1 Aftercare following joint replacement surgery (principal); Z96.651 Presence of right artificial knee joint | CPT/HCPCS: 97110 ==

== ENCOUNTER → 2024-05-13 10:41 | Outpatient (BNVA) | payer OTHER, SELFPAY | PROVIDERS: Visit Provider Physician Assistant | DX: Z96.651 Presence of right artificial knee joint (principal); R03.0 Elevated blood-pressure reading, without diagnosis of hypertension | CPT/HCPCS: 73560; 73565 ==

== ENCOUNTER → 2024-06-24 09:14 | Outpatient (BNVA) | payer OTHER, SELFPAY | PROVIDERS: PCP Family Medicine; Visit Provider Physician Assistant | DX: Z96.652 Presence of left artificial knee joint (principal); R03.0 Elevated blood-pressure reading, without diagnosis of hypertension | CPT/HCPCS: 73560; 73565 ==

== ENCOUNTER 2024-09-20 14:56 | Emergency (ER) | payer OTHER, SELFPAY ==
[2024-09-20 16:37] VITALS: BP 113/73; PULSE 86; O2SAT 97
--- NOTE | 2024-09-20 17:11 | XRR_ITS ---
PROCEDURE INFORMATION: Exam: XR Chest Exam date and time: 09/20/2024 5:15 PM Age: 64 years old Clinical indication: Injury or trauma; Fall; Blunt trauma (contusions or hematomas); Additional info: Right lower rib pain after fall TECHNIQUE: Imaging protocol: Radiologic exam of the chest. Views: 1 view. COMPARISON: CT kidney stone [id number] 07/21/2023 3:57 AM FINDINGS: Lungs: Lung volumes are decreased. There are some indistinct faint interstitial opacities at the lung bases likely representing hypoventilatory changes and linear atelectasis. Upper lung salas are relatively clear. Pleural spaces: Unremarkable. No pleural effusion. No pneumothorax. Heart/Mediastinum: Cardiac silhouette appears borderline enlarged. There is a small-moderate sized hiatal hernia present. Bones/joints: No acute bony abnormalities detected. XR/XR chest 1V portable [id number] IMPRESSION: Decreased lung volumes with hypoventilatory changes at the lung bases.
--- NOTE | 2024-09-20 17:11 | CTR_ITS ---
PROCEDURE INFORMATION: Exam: CT Cervical Spine Without Contrast Exam date and time: 09/20/2024 5:27 PM Age: 64 years old Clinical indication: Injury or trauma; Fall; Other: Pain TECHNIQUE: Imaging protocol: Computed tomography of the cervical spine without contrast. Radiation optimization: All CT scans at this facility use at least one of these dose optimization techniques: automated exposure control; mA and/or kV adjustment per patient size (includes targeted exams where dose is matched to clinical indication); or iterative reconstruction. COMPARISON: CR (CHEST, ) 09/20/2024 5:15 PM RADIATION DOSE METRICS: Total DLP (mGy-cm): 156.2 FINDINGS: Bones: No acute fracture. Normal alignment. Degenerative disc disease at C5-C6 and C6-C7 with broad-based disc osteophyte complex posteriorly at both levels. No severe spinal canal stenosis. Moderate left neural foraminal stenosis at C5-C6 and moderate right neural foraminal stenosis at C6-C7, both due to uncovertebral spurring. Lungs: Lung apices are normal. Soft tissues: Unremarkable. CT/CT cervical spin wo con* [id number] IMPRESSION: No acute findings.
--- NOTE | 2024-09-20 17:11 | CTR_ITS ---
PROCEDURE INFORMATION: Exam: CT Head Without Contrast Exam date and time: 09/20/2024 5:27 PM Age: 64 years old Clinical indication: Injury or trauma; Other: Fall off horse; Additional info: Fall off of horse today, right rib and right hip pain, PT states she hit head TECHNIQUE: Imaging protocol: Computed tomography of the head without contrast. Radiation optimization: All CT scans at this facility use at least one of these dose optimization techniques: automated exposure control; mA and/or kV adjustment per patient size (includes targeted exams where dose is matched to clinical indication); or iterative reconstruction. COMPARISON: CT cervical spin wo con* [id number] 09/20/2024 5:27 PM RADIATION DOSE METRICS: Total DLP (mGy-cm): 1107.79 FINDINGS: Brain: Normal. No hemorrhage. Unremarkable white matter. No mass effect. Cerebral ventricles: No ventriculomegaly. Paranasal sinuses: Visualized sinuses are unremarkable. No fluid levels. Mastoid air cells: Visualized mastoid air cells are well aerated. Bones: Unremarkable. No acute fracture. Soft tissues: Unremarkable. CT/CT head wo con* [id number] IMPRESSION: No acute intracranial abnormality. 1
--- NOTE | 2024-09-20 17:11 | CTR_ITS ---
PROCEDURE INFORMATION: Exam: CT Chest With Contrast; Diagnostic Exam date and time: 09/20/2024 5:27 PM Age: 64 years old Clinical indication: Injury or trauma; Fall; Generalized; Blunt trauma (contusions or hematomas); Additional info: Fall off of horse today, right rib and right hip pain, PT states she hit head TECHNIQUE: Imaging protocol: Diagnostic computed tomography of the chest with contrast. Radiation optimization: All CT scans at this facility use at least one of these dose optimization techniques: automated exposure control; mA and/or kV adjustment per patient size (includes targeted exams where dose is matched to clinical indication); or iterative reconstruction. Contrast material: OMNI 350; Contrast volume: 100 ml; Contrast route: INTRAVENOUS (IV); COMPARISON: CR (CHEST, ) 09/20/2024 5:15 PM RADIATION DOSE METRICS: Total DLP (mGy-cm): 1359 FINDINGS: Lungs: There are mild hypoventilatory changes the scattered platelike atelectasis at the lung bases more pronounced on the right. Remaining lung salas are clear. Pleural spaces: Unremarkable. No pneumothorax. No pleural effusion. Heart: Heart is not significantly enlarged. No detectable coronary artery calcifications. No significant pericardial effusion. Mediastinal space: Anterior mediastinal fat planes are preserved. No evidence of mediastinal hematoma. Lymph nodes: Unremarkable. No enlarged lymph nodes. Vasculature: Unremarkable. No aortic aneurysm. Bones/joints: There are acute nondisplaced no segmental fractures involving the posterior lateral aspect of the right 6, 7th and 9th ribs. Soft tissues: Unremarkable. PROCEDURE INFORMATION: Exam: CT Abdomen And Pelvis With Contrast Exam date and time: 09/20/2024 5:27 PM Age: 64 years old Clinical indication: Injury or trauma; Fall; Generalized; Blunt trauma (contusions or hematomas); Additional info: Fall off of horse today, right rib and right hip pain, PT states she hit head TECHNIQUE: Imaging protocol: Computed tomography of the abdomen and pelvis with contrast. Radiation optimization: All CT scans at this facility use at least one of these dose optimization techniques: automated exposure control; mA and/or kV adjustment per patient size (includes targeted exams where dose is matched to clinical indication); or iterative reconstruction. Contrast material: OMNI 350; Contrast volume: 100 ml; Contrast route: INTRAVENOUS (IV); COMPARISON: 1. CT kidney stone [id number] 07/21/2023 3:[address] abdomen pelvis w con* [id number] 06/06/2021 3:14 PM RADIATION DOSE METRICS: Total DLP (mGy-cm): 1359 FINDINGS: Lungs: Lung bases are clear. Liver: There are a few liver cysts redemonstrated unchanged. Liver is otherwise unremarkable. Gallbladder and biliary ducts: Normal. No calcified stones. No ductal dilation. Pancreas: Normal. No ductal dilation. Spleen: Normal. No splenomegaly. Adrenal glands: Normal. No mass. Kidneys and ureters: Small nonobstructing calculi lower portion both renal hilum subcu small cortical cysts. No hydronephrosis. Stomach and bowel: Unremarkable. No obstruction. No mucosal thickening. Appendix: No evidence of appendicitis. Intraperitoneal space: Unremarkable. No free air. No significant fluid collection. Vasculature: Unremarkable. No abdominal aortic aneurysm. Lymph nodes: Unremarkable. No enlarged lymph nodes. Urinary bladder: Unremarkable as visualized. Reproductive: Uterus has been removed. Bones/joints: Moderate asymmetric degenerative changes mid and lower lumbar spine. No acute bony abnormalities. Soft tissues: Unremarkable. CT/CT chest abdpel w/*[id number] IMPRESSION: Acute nonsegmental, nondisplaced fractures involving the right 6th, 7th and 9th ribs. IMPRESSION: 1. No evidence of abdominal or pelvic injury. 2. Few small nonobstructing calculi both kidneys. 3. Stable small liver cysts. COMMENTS: Consistent with the [employer]'s Incidental Findings Committee white paper (J Am Paola Radiol 2018): Any incidental renal lesion less than 1 cm or classified as too small to characterize, or any incidental cystic renal lesion characterized as simple-appearing, is likely benign. No follow-up imaging is recommended for these lesions per consensus recommendations based on imaging criteria.
--- NOTE | 2024-09-20 17:15 | W.ED.BACK ---
HPI - Back Pain/Injury General: Chief Complaint: Back Pain/Injury Stated Complaint: thrown from horse Time Seen by Provider: 09/20/24 16:33 History of Present Illness: 64-year-old female is presenting with right rib pain after she was kicked off her horse and fell sideways, she did hit her head but denies LOC she was wearing a helmet, she is complaining of right rib pain and right buttock pain but is able to get up and ambulate around. She is not on any anticoagulation she denies any abdominal pain no nausea no vomiting no diarrhea. She is also complaining of suffering from bronchitis over the past few days. Associated symptoms: Deny abdominal pain, chills, fever(s), nausea or vomiting Related Data Home Medications ?Medication ?Instructions ?Recorded ?Confirmed magnesium citrate 125 mg capsule 250 mg PO BID 01/23/23 09/20/24 omega 5-arg-dsy-fish oil 60 mg-90 1 cap PO DAILY 06/24/24 09/20/24 mg-500 mg capsule (Fish Oil) Previous Rx's ?Medication ?Instructions ?Recorded atorvastatin 20 mg tablet 20 mg PO DAILY #90 tabs 08/05/24 clonidine HCl 0.1 mg tablet 0.1 mg PO .q hs hot flashes #90 08/05/24 tabs meloxicam 15 mg tablet 15 mg PO DAILY #90 tabs 08/05/24 pantoprazole 40 mg tablet,delayed 40 mg PO DAILY #90 tabs 08/05/24 release estradiol 0.025 mg/24 hr weekly 1 patch transdermal .weekly #4 ea 09/05/24 transdermal patch cefdinir 300 mg capsule 300 mg PO BID 10 days #20 caps 09/17/24 promethazine-DM 6.25 mg-15 mg/5 mL 10 ml PO Q6H PRN cough #118 mL 09/17/24 oral syrup azithromycin 250 mg tablet See Rx Instructions PO .COMPLEX #6 09/20/24 (Zithromax Z-Chad) tabs methocarbamol 750 mg tablet 750 mg PO TID #20 tabs 09/20/24 oxycodone-acetaminophen 5 mg-325 1 tab PO Q8H PRN pain 3 days #14 09/20/24 mg tablet (Endocet) tabs Allergies Allergy/AdvReac Type Severity Reaction Status Date / Time sulfamethoxazole (From Allergy Mild STOMACH Verified 09/17/24 11:27 Bactrim) ACHE trimethoprim (From Bactrim) Allergy Mild STOMACH Verified 09/17/24 11:27 ACHE gabapentin Allergy dizziness Verified 09/17/24 11:27 hydromorphone (From Dilaudid) Allergy ADR-Dizzine Verified 09/17/24 11:27 ss venlafaxine AdvReac sweating, Verified 09/17/24 11:27 elevated BP Review of Systems Const: Denies: fever(s) or chills Eyes: Denies: change in vision ENMT: Denies: throat pain or uvular edema Card: Reports: chest pain; Denies: palpitations, irregular heart rhythm or edema Resp: Reports: dyspnea and productive cough GI: Denies: abdominal pain, nausea, vomiting or hematemesis : Denies: flank pain Musc: Reports: back pain; Denies: neck pain, extremity pain or extremity swelling Skin/Breast: Denies: rash PFSH ED PFSH: Medical History Elevated blood pressure reading in office without diagnosis of hypertension Right knee DJD Rectal prolapse surgery 2019 Chronic low back pain History of cervical fracture History of fracture of right ankle Urolithiasis Surgical History History of bladder surgery Lifted History of hysterectomy GALO. 2018 History of cholecystectomy 2001 Family History Father Dementia Cancer SQUAMOUS CELL CARCINOMA Mother Dementia Social History Smoking and tobacco/nicotine status: never used tobacco/nicotine Alcohol intake: never Substance/Drug Use: never Marital status: Current occupational status: retired Physical Exam Const: COMMON NORMALS: no acute distress, patient oriented x3 and alert HENMT: COMMON NORMALS: normocephalic and atraumatic HEAD & SCALP: normocephalic and atraumatic THROAT: no uvular edema Eye: COMMON NORMALS: Equal, round and reactive pupils present, EOMs intact bilaterally and conjunctivae normal CONJUNCTIVA: Yes conjunctivae normal PUPIL: Yes Equal, round and reactive pupils present Neck/C-Spine: COMMON NORMALS: supple and no JVD GENERAL: No tender CERVICAL SPINE: Yes cervical ROM normal Chest: OTHER: Right lateral lower chest wall tenderness rib tenderness and crepitus Resp: COMMON NORMALS: normal respiratory effort, No retractions, No use of accessory muscles and clear to auscultation bilaterally AUSCULTATION: clear to auscultation bilaterally, no crackles, no rales, no rhonchi and no wheezes Cardio: COMMON NORMALS: no JVD, regular rate and regular rhythm RATE: regular rate RHYTHM: regular rhythm GI: OTHER: Right upper quadrant abdominal tenderness otherwise nontender, nondistended no rebound or guarding in the soft Back/Pelvis: OTHER: Tenderness over the right lower sacral region Extremity: COMMON NORMALS: normal to inspection, full ROM, no clubbing, cyanosis or edema, no calf tenderness and no pedal edema Neuro: COMMON NORMALS: patient oriented x3, CN's II-XII intact bilaterally, moves all extremities, no focal motor deficits and no sensory deficits noted SENSORIUM/ORIENTATION: Yes alert Course Vital Signs: Vital signs: Vital Signs Pulse Rate 86 09/20/24 16:37 Respiratory Rate 89 H 09/20/24 18:00 Blood Pressure 130/73 09/20/24 18:30 Pulse Oximetry 95 09/20/24 18:30 MDM - Back Pain/Injury Medical Decision Making Workup remarkable for 3 rib fractures posterior on the right side no pneumothorax no other injuries head CT and CT C-spine otherwise normal no acute intra-abdominal pathology. No pneumothorax no pneumonia. She does have some bronchitis clinically and mild leukocytosis which is likely secondary to pain and trauma. She feels markedly improved after morphine and Robaxin and her pain is under control. Patient was offered inpatient admission however she declined she would like to go home and she feels well and able to care for herself. Discussed treatment as an outpatient of rib fractures and pain control and otherwise patient stable for discharge Labs 09/20/24 18:00 09/20/24 18:00 Radiology Impressions Cervical Spine CT 09/20/24 17:11 IMPRESSION: No acute findings. Chest X-Ray 09/20/24 17:11 IMPRESSION: Decreased lung volumes with hypoventilatory changes at the lung bases. Chest/Abdomen/Pelvis CT 09/20/24 17:11 IMPRESSION: Acute nonsegmental, nondisplaced fractures involving the right 6th, 7th and 9th ribs. IMPRESSION: 1. No evidence of abdominal or pelvic injury. 2. Few small nonobstructing calculi both kidneys. 3. Stable small liver cysts. COMMENTS: Consistent with the [employer]'s Incidental Findings Committee white paper (J Am Paola Radiol 2018): Any incidental renal lesion less than 1 cm or classified as too small to characterize, or any incidental cystic renal lesion characterized as simple-appearing, is likely benign. No follow-up imaging is recommended for these lesions per consensus recommendations based on imaging criteria. Head CT 09/20/24 17:11 IMPRESSION: No acute intracranial abnormality. 1 Laboratory Results WBC 14.96 10^3/uL (3.29-11.43) H 09/20/24 18:00 RBC 4.94 10^6/uL (3.85-5.65) 09/20/24 18:00 Hgb 14.30 g/dL (11.27-16.99) 09/20/24 18:00 Hct 45.0 % (36-47) 09/20/24 18:00 MCV 91.1 fl (85-98) 09/20/24 18:00 MCH 28.9 pg (27-33) 09/20/24 18:00 MCHC 31.8 g/dL (30-55) 09/20/24 18:00 RDW 12.5 % (12.1-15.1) 09/20/24 18:00 Plt Count 273 10^3/cmm (157-399) 09/20/24 18:00 MPV 9.4 fL (7.4-10.4) 09/20/24 18:00 Neut % (Auto) 86.2 % 09/20/24 18:00 Lymph % (Auto) 9.1 % 09/20/24 18:00 [place] % (Auto) 3.7 % 09/20/24 18:00 Eos % (Auto) 0.3 % 09/20/24 18:00 Baso % (Auto) 0.3 % 09/20/24 18:00 Neut # (Auto) 12.89 10^3/uL (1.8-7.7) H 09/20/24 18:00 Lymph # (Auto) 1.4 10^3/uL (0.8-4.8) 09/20/24 18:00 [place] # (Auto) 0.6 10^3/uL (0.2-0.9) 09/20/24 18:00 Eos # (Auto) 0.0 10^3/uL (0.0-0.8) 09/20/24 18:00 Baso # (Auto) 0.1 10^3/uL (0.0-0.1) 09/20/24 18:00 Nucleated RBC % (auto) 0 % 09/20/24 18:00 Nucleated RBCs # 0.0 /100WBC 09/20/24 18:00 Sodium 137 mmol/L (136-145) 09/20/24 18:00 Potassium 3.9 mmol/L (3.5-5.1) 09/20/24 18:00 Chloride 102 mmol/L (98-107) 09/20/24 18:00 Carbon Dioxide 21 mmol/L (22-29) L 09/20/24 18:00 Anion Gap 17.9 (5-19) 09/20/24 18:00 BUN 17 mg/dL (8-23) 09/20/24 18:00 Creatinine 0.4 mg/dL (0.5-0.9) L 09/20/24 18:00 GFR Calculation 159.7 mL/min (90-130) H 09/20/24 18:00 Glucose 100 mg/dL (65-115) 09/20/24 18:00 Calculated Osmolality 286 mOsm/kg (285-295) 09/20/24 18:00 Calcium 10.2 mg/dL (8.5-10.5) 09/20/24 18:00 Total Bilirubin 0.5 mg/dL (0.15-1.2) 09/20/24 18:00 AST 30 U/L (0-32) 09/20/24 18:00 ALT 29 U/L (0-33) 09/20/24 18:00 Alkaline Phosphatase 94 U/L (35-105) 09/20/24 18:00 Total Protein 7.3 g/dL (6.6-8.7) 09/20/24 18:00 Albumin 4.5 g/dL (3.5-5.2) 09/20/24 18:00 Globulin 2.8 g/dL (1.3-4.6) 09/20/24 18:00 All radiology interpretation(s) finalized by discharge Discharge Plan Discharge Patient Disposition: Home Clinical Impression: Multiple rib fractures, Bronchitis Condition: Stable Prescriptions: New oxycodone-acetaminophen [Endocet] 5-325 mg tablet 1 tab PO Q8H PRN (Reason: pain) 3 Days Qty: 14 0RF methocarbamol 750 mg tablet 750 mg PO TID Qty: 20 0RF azithromycin [Zithromax Z-Chad] 250 mg tablet See Rx Instructions .ROUTE .COMPLEX Qty: 6 0RF Rx Instructions: For 250 mg dose pack: take 500 mg today (day 1), then 250 mg for 4 days (days 2-5) No Action estradiol 0.025 mg/24 hr patch weekly 1 patch transdermal .weekly Qty: 4 0RF cefdinir 300 mg capsule 300 mg PO BID 10 Days Qty: 20 0RF promethazine-DM 6.25-15 mg/5 mL syrup 10 ml PO Q6H PRN (Reason: cough) Qty: 118 0RF magnesium citrate 125 mg capsule 250 mg PO BID omega 4-lut-qvb-fish oil [Fish Oil] 60-90-500 mg capsule 1 cap PO DAILY atorvastatin 20 mg tablet 20 mg PO DAILY Qty: 90 1RF clonidine HCl 0.1 mg tablet 0.1 mg PO .q hs Qty: 90 1RF meloxicam 15 mg tablet 15 mg PO DAILY Qty: 90 1RF pantoprazole 40 mg tablet,delayed release (DR/EC) 40 mg PO DAILY Qty: 90 1RF Discharge Orders: Discharge ED (Routine); Ordered 09/20/24 Ordered By: Tomasz Meza Referrals: Lily Chua DO [Primary Care Provider] - Patient Instructions: Opioid Safety, Pain Management, Rib Fracture (ED) Print Language: Hebrew Coding Level of Care Code 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
[2024-09-20] MEDS: iohexol 350 mg/mL 500 mL Btl (per mL) IV (17:43)
[2024-09-20] MEDS: sodium chloride 0.9% 500 ML 999 ML IV (17:55)
[2024-09-20 17:56] VITALS: RESP 18; O2SAT 99
[2024-09-20] MEDS: morphine 4 mg/mL SDV 1 mL IVP (17:56)
[2024-09-20] MEDS: methocarbamol 750 mg Tablet PO (17:58)
[2024-09-20 18:00] VITALS: BP 133/76; RESP 89; O2SAT 97
[2024-09-20 18:18] LABS: Basophils # 0.1 10^3/uL (0.0-0.1); Basophils % 0.3 %; Eosinophils % 0.3 %; Lymphocytes # 1.4 10^3/uL (0.8-4.8); Lymphocytes % 9.1 %; Mean Corpuscular HGB Conc 31.8 g/dL (30-55); Mean Corpuscular Hemoglobin 28.9 pg (27-33); Mean Corpuscular Volume 91.1 fl (85-98); Mean Platelet Volume 9.4 fL (7.4-10.4); Monocytes # 0.6 10^3/uL (0.2-0.9); Monocytes % 3.7 %; Neutrophils # 12.89 10^3/uL (1.8-7.7); Neutrophils % 86.2 %; Nucleated Red Blood Cells % 0 %; Platelet Count 273 10^3/cmm (157-399); Red Blood Count 4.94 10^6/uL (3.85-5.65); Red Cell Distribution Width 12.5 % (12.1-15.1); White Blood Count 14.96 10^3/uL (3.29-11.43)
[2024-09-20 18:30] VITALS: BP 130/73; O2SAT 95
[2024-09-20 18:39] LABS: Alanine Aminotransferase 29 U/L (0-33); Albumin Level 4.5 g/dL (3.5-5.2); Alkaline Phosphatase 94 U/L (35-105); Anion Gap 17.9 (5-19); Aspartate Amino Transferase 30 U/L (0-32); Blood Urea Nitrogen 17 mg/dL (8-23); Calcium 10.2 mg/dL (8.5-10.5); Carbon Dioxide 21 mmol/L (22-29); Chloride 102 mmol/L (98-107); Creatinine Clr Calc Pharmacy 71.9419; Globulin 2.8 g/dL (1.3-4.6); Glomerular Filtration Rate 159.7 mL/min (90-130); Glucose 100 mg/dL (65-115); Osmolality Calculated 286 mOsm/kg (285-295); Potassium 3.9 mmol/L (3.5-5.1); Sodium 137 mmol/L (136-145); Total Bilirubin 0.5 mg/dL (0.15-1.2); Total Protein 7.3 g/dL (6.6-8.7)
== END 2024-09-20 19:49 | disposition home or self-care (01) ==
PROVIDERS: Emergency Provider Emergency Medicine; PCP Family Medicine
DX: S22.41XA Multiple fractures of ribs, right side, initial encounter for closed fracture (principal); J40 Bronchitis, not specified as acute or chronic; V80.010A Animal-rider injured by fall from or being thrown from horse in noncollision accident, initial encounter
CPT/HCPCS: 70450; 71045; 71260; 72125; 74177; 80053; 85025; 96374; 99285; J2270; J7040; J9999

== ENCOUNTER → 2024-10-28 09:19 | Outpatient (BNVA) | payer OTHER, SELFPAY | PROVIDERS: PCP Family Medicine; Visit Provider Physician Assistant | DX: Z96.652 Presence of left artificial knee joint (principal) | CPT/HCPCS: 73560; 73565 ==

== ENCOUNTER 2024-11-14 13:53 | Outpatient (CLI) | payer OTHER, SELFPAY ==
--- NOTE | 2024-11-14 13:58 | MM_ITS ---
WS: [id number] BILATERAL 3D TOMOSYNTHESIS DIGITAL SCREENING MAMMOGRAPHY WITH CAD CLINICAL INFORMATION: SCREEN HISTORY: Screening mammogram. No current complaints. COMPARISON: 2023 TECHNIQUE: Bilateral CC and MLO views. FINDINGS: The breasts are composed of heterogeneous fibroglandular density tissue, which can limit the detection of small underlying mass lesions. No suspicious mass, asymmetry, calcifications, or architectural distortion. No evidence of malignancy. A few tiny incidental punctate calcifications MM/MM [facility] tomosynthesis [id number] IMPRESSION: DENSITY: The breasts are heterogeneously dense, which may obscure small masses. BI-RADS: 2 - Benign FOLLOW UP: 1 Year Follow-up Recommend return to annual screening mammography.
== END 2024-11-14 13:54 | disposition home or self-care (01) ==
PROVIDERS: PCP Family Medicine; Visit Provider Family Medicine
DX: Z12.31 Encounter for screening mammogram for malignant neoplasm of breast (principal)
CPT/HCPCS: 77063; 77067

== ENCOUNTER → 2025-04-13 10:22 | Outpatient (BNVA) | payer OTHER, SELFPAY | PROVIDERS: PCP Family Medicine; Visit Provider Family Medicine | DX: E78.5 Hyperlipidemia, unspecified (principal) | CPT/HCPCS: 80053; 80061 ==

== ENCOUNTER → 2025-05-15 10:09 | Outpatient (BNVA) | payer OTHER, SELFPAY | PROVIDERS: PCP Family Medicine; Visit Provider Family Medicine | DX: R30.0 Dysuria (principal); N89.8 Other specified noninflammatory disorders of vagina | CPT/HCPCS: 81000; 81513; 87086; 87481; 87491; 87591; 87661 ==

== ENCOUNTER → 2025-05-17 10:06 | Outpatient (BNVA) | payer OTHER, SELFPAY | PROVIDERS: PCP Family Medicine; Visit Provider Student in an Organized Health Care Education/Training Program | DX: Z96.651 Presence of right artificial knee joint (principal); Z47.1 Aftercare following joint replacement surgery | CPT/HCPCS: 73560; 73565 ==